=== PATIENT | male | born 1955 | race Caucasian/White ===

== ENCOUNTER → 2022-08-23 | Outpatient (REF) | payer MEDICARE, MEDICAID ==
[2022-08-23 08:51] LABS: HEMATOCRIT 42.1 % (42.0-52.0); MEAN CORPUSCULAR HEMOGLOBIN 29.5 pg (27.0-33.0); MEAN CORPUSCULAR HGB CONC 30.9 g/dl (32.0-36.5); MEAN CORPUSCULAR VOLUME 95.5 fl (80.0-96.0); PLATELET COUNT, AUTOMATED 225 10^3/uL (150-450); RED BLOOD COUNT 4.41 10^6/uL (4.30-6.10); WHITE BLOOD COUNT 8.1 10^3/uL (4.0-10.0)
[2022-08-23 09:23] LABS: ALBUMIN 2.9 G/DL (3.2-5.2); BILIRUBIN,TOTAL 0.3 MG/DL (0.3-1.2); CALCIUM LEVEL 8.9 MG/DL (8.3-10.6); CHOLESTEROL RISK RATIO 2.9 (<5); CREATININE FOR GFR 4.77 MG/DL (0.70-1.30); GLOMERULAR FILTRATION RATE 13.1 (>49); HDL CHOLESTEROL 56.8 MG/DL (>40); LDL CHOLESTEROL 91.4 MG/DL (<100); NON-HDL-C 108.2 MG/DL; POTASSIUM SERUM 5.9 MMOL/L (3.5-5.1); TOTAL PROTEIN 6.1 G/DL (5.7-8.2)
[2022-08-23 10:05] LABS: HEMOGLOBIN A1c 7.1 % (4.0-6.0)
== END ==
LOC: SKLAB5 07:56
PROVIDERS: ATTEND Internal Medicine
DX: N18.9 Chronic kidney disease, unspecified (principal); E11.22 Type 2 diabetes mellitus with diabetic chronic kidney disease

== ENCOUNTER → 2022-09-06 | Outpatient (REF) | LOC: SKLAB5 06:34 | PROVIDERS: ATTEND Internal Medicine | DX: E11.65 Type 2 diabetes mellitus with hyperglycemia (principal) ==

== ENCOUNTER → 2022-09-13 | Outpatient (REF) | payer MEDICARE, MEDICAID ==
[2022-09-14 01:11] LABS: CALCIUM LEVEL 9.2 MG/DL (8.3-10.6); CREATININE FOR GFR 4.05 MG/DL (0.70-1.30); GLOMERULAR FILTRATION RATE 15.8 (>49); POTASSIUM SERUM 5.1 MMOL/L (3.5-5.1)
== END ==
LOC: SKLAB8 22:03
PROVIDERS: ATTEND Internal Medicine
DX: E11.65 Type 2 diabetes mellitus with hyperglycemia (principal)

== ENCOUNTER → 2022-09-28 | Outpatient (REF) | payer MEDICARE, MEDICAID ==
[~2022-09-28] MED LIST: ACET-907 PO; ALBU8.5H INH; ASPI-655 PO; ATOR1TAB19 PO; CITA40TA7 PO; CYCL-707 PO; FLEEENE12 PR; GABA-282 PO; GLUC1KIT IM; HUMA100I5 SC; INSU100V13 SQ; INSUHUMDS SC; OXYC1TAB23 PO
== END ==
LOC: SKLAB5 13:43
PROVIDERS: ATTEND Internal Medicine
DX: E11.65 Type 2 diabetes mellitus with hyperglycemia (principal)

== ENCOUNTER → 2022-10-02 | Outpatient (REF) | payer MEDICARE, MEDICAID | LOC: SKLAB5 12:57 | PROVIDERS: ATTEND Internal Medicine | DX: E11.65 Type 2 diabetes mellitus with hyperglycemia (principal) ==

== ENCOUNTER → 2022-10-04 | Outpatient (REF) | payer MEDICARE, MEDICAID | LOC: SKLAB5 16:36 | PROVIDERS: ATTEND Internal Medicine | DX: E11.65 Type 2 diabetes mellitus with hyperglycemia (principal); Z53.8 Procedure and treatment not carried out for other reasons ==

== ENCOUNTER → 2022-10-04 | Outpatient (REF) | payer MEDICARE, MEDICAID | LOC: SKLAB5 16:35 | PROVIDERS: ATTEND Internal Medicine | DX: E11.65 Type 2 diabetes mellitus with hyperglycemia (principal) ==

== ENCOUNTER → 2022-10-05 | Outpatient (REF) | payer MEDICARE, MEDICAID | LOC: SKLAB5 09:47 | PROVIDERS: ATTEND Internal Medicine | DX: E11.65 Type 2 diabetes mellitus with hyperglycemia (principal) ==

== ENCOUNTER → 2022-10-07 | Outpatient (REF) | payer MEDICARE, MEDICAID ==
[2022-10-07 08:05] LABS: BASO # 0.1 10^3/uL (0.0-0.2); BASO % 1.2 % (0.0-1.0); EOS # 0.8 10^3/uL (0.0-0.5); EOS % 11.2 % (0.0-3.0); HEMATOCRIT 40.7 % (42.0-52.0); HEMOGLOBIN 12.7 g/dl (13.5-17.5); LYMPH # 2.2 10^3/uL (1.5-5.0); MEAN CORPUSCULAR HEMOGLOBIN 29.2 pg (27.0-33.0); MEAN CORPUSCULAR HGB CONC 31.2 g/dl (32.0-36.5); MEAN CORPUSCULAR VOLUME 93.6 fl (80.0-96.0); MONO # 0.8 10^3/uL (0.0-0.8); MONO % 11.6 % (2.0-8.0); NEUTROPHILS % 43.9 % (36.0-66.0); PLATELET COUNT, AUTOMATED 221 10^3/uL (150-450); RED BLOOD COUNT 4.35 10^6/uL (4.30-6.10); WHITE BLOOD COUNT 6.8 10^3/uL (4.0-10.0)
[2022-10-07 08:32] LABS: PERCENT SATURATION 15.1 % (19.7-50.0)
[2022-10-07 08:42] LABS: ALBUMIN 2.8 G/DL (3.2-5.2); BILIRUBIN,TOTAL 0.2 MG/DL (0.3-1.2); CREATININE FOR GFR 4.32 MG/DL (0.70-1.30); FERRITIN 37.9 NG/ML (10.5-307.3); GLOMERULAR FILTRATION RATE 14.7 (>49); POTASSIUM SERUM 5.5 MMOL/L (3.5-5.1)
== END ==
LOC: SKLAB5 10-03 07:54
PROVIDERS: ATTEND Internal Medicine
DX: E11.22 Type 2 diabetes mellitus with diabetic chronic kidney disease (principal); N18.9 Chronic kidney disease, unspecified

== ENCOUNTER → 2022-10-22 | Outpatient (REF) | payer MEDICARE, MEDICAID ==
[2022-10-22 21:51] LABS: CALCIUM LEVEL 8.5 MG/DL (8.3-10.6); CREATININE FOR GFR 3.38 MG/DL (0.70-1.30); GLOMERULAR FILTRATION RATE 19.5 (>49); POTASSIUM SERUM 4.9 MMOL/L (3.5-5.1)
== END ==
LOC: SKLAB5 18:40
PROVIDERS: ATTEND Internal Medicine
DX: E11.65 Type 2 diabetes mellitus with hyperglycemia (principal)

== ENCOUNTER 2022-11-05 10:10 | Observation (INO) | payer MEDICARE, MEDICAID ==
[~2022-11-05] VITALS: Ht 160 cm; Wt 71.8 kg
[2022-11-05 11:18] LABS: HEMATOCRIT 40.1 % (42.0-52.0); HEMOGLOBIN 13.1 g/dl (13.5-17.5); MEAN CORPUSCULAR HEMOGLOBIN 29.8 pg (27.0-33.0); MEAN CORPUSCULAR HGB CONC 32.7 g/dl (32.0-36.5); MEAN CORPUSCULAR VOLUME 91.3 fl (80.0-96.0); PLATELET COUNT, AUTOMATED 198 10^3/uL (150-450); RED BLOOD COUNT 4.39 10^6/uL (4.30-6.10); VENOUS BASE EXCESS -5.5 (-2.0-2.0); VENOUS O2 SATURATION 91.1 % (60.0-80.0); VENOUS PARTIAL PRESSURE CO2 44.6 mmHg (38.0-50.0); VENOUS PARTIAL PRESSURE O2 65.4 mmHg (30.0-50.0); VENOUS STANDARD HCO3 19.8 MMOL/L; VENOUS TOTAL CO2 22.3 MMOL/L (24.0-28.0); WHITE BLOOD COUNT 13.4 10^3/uL (4.0-10.0)
[2022-11-05 11:47] LABS: OSMOLALITY SERUM 321 MOSM/KG (280-301)
[2022-11-05 11:48] LABS: ALBUMIN 3.1 G/DL (3.2-5.2); ALKALINE PHOSPHATASE 107 U/L (46-116); ALT/SGPT 23 U/L (7.0-40); AST/SGOT 27 U/L (<34); BILIRUBIN,DIRECT < 0.1 MG/DL (<0.4); BILIRUBIN,TOTAL 0.3 MG/DL (0.3-1.2); BLOOD UREA NITROGEN 82 MG/DL (9-23); CALCIUM LEVEL 9.2 MG/DL (8.3-10.6); CARBON DIOXIDE LEVEL 23 MMOL/L (20-31); CHLORIDE LEVEL 99 MMOL/L (98-107); CREATININE FOR GFR 5.57 MG/DL (0.70-1.30); GLOMERULAR FILTRATION RATE 10.9 (>49); GLUCOSE, FASTING 389 MG/DL (74-106); POTASSIUM SERUM 5.4 MMOL/L (3.5-5.1); SODIUM LEVEL 133 MMOL/L (136-145); TOTAL PROTEIN 6.6 G/DL (5.7-8.2)
[2022-11-05 11:49] LABS: ATYPICAL LYMPH 4 % (0-5); LYMPHOCYTES 2 % (16-44); MONOCYTES 6 % (0-5); NEUTROPHILS 71 % (28-66)
[2022-11-05 11:50] LABS: PLATELET ESTIMATE NORMAL (NORMAL); THYROID STIMULATING HORMONE 0.602 uIU/ML (0.55-4.78)
[2022-11-05] MEDS ORDERED: cefTRIAXone SOD 2 GM in D5W MINI-BAG PLUS 50 ML IV ONE (12:00)
[2022-11-05] MEDS ORDERED: HumuLIN R (REGULAR) INSULIN (NovoLIN R) **100U/ML** PER UNIT SC STA (15:11)
[2022-11-05] MEDS ORDERED: GLUCOSE 4GM CHEW TABLET PO PRN (16:25)
[2022-11-05] MEDS ORDERED: DEXTROSE 50% 50ML SYRINGE IV PRN (16:25)
[2022-11-05] MEDS ORDERED: GLUCAGON INJ 1MG VIAL SC PRN (16:25)
[2022-11-05] MEDS ORDERED: GABA-282 PO (16:54)
[2022-11-05] MEDS ORDERED: OXYC1TAB23 PO (16:54)
[2022-11-05] MEDS ORDERED: ALBU8.5H INH (16:54)
[2022-11-05] MEDS ORDERED: INSUHUMDS SC (16:54)
[2022-11-05] MEDS ORDERED: CITA40TA7 PO (16:54)
[2022-11-05] MEDS ORDERED: CYCL-707 PO (16:54)
[2022-11-05] MEDS ORDERED: INSU100V13 SQ (16:54)
[2022-11-05] MEDS ORDERED: ASPI-655 PO (16:54)
[2022-11-05] MEDS ORDERED: HUMA100I5 SC ×2 (16:54)
[2022-11-05] MEDS ORDERED: GLUC1KIT IM (16:54)
[2022-11-05] MEDS ORDERED: ACET-907 PO (16:54)
[2022-11-05] MEDS ORDERED: FLEEENE12 PR (16:54)
[2022-11-05] MEDS ORDERED: ATOR1TAB19 PO (16:54)
[2022-11-05] MEDS ORDERED: HOME MED LIST COMPLETE! XX SCH (16:55)
[2022-11-05] MEDS ORDERED: **hydrALAZINE HCL** 25 MG TAB PO PRN (17:15)
[2022-11-05] MEDS ORDERED: INSULIN LISPRO (NovoLOG) PER UNIT SC SCH (17:30)
[2022-11-05 17:42] VITALS: BP 134/60
[2022-11-05] MEDS ORDERED: ALBUTEROL 90 MCG/ACT 8GM HFA INHALER INH PRN (18:10)
[2022-11-05] MEDS: INSULIN LISPRO (NovoLOG) PER UNIT SC SCH ×2 (18:21→22:11)
[2022-11-05] MEDS ORDERED: FUROSEMIDE 40MG/4ML VIAL IV ONE (18:35)
[2022-11-05] MEDS ORDERED: LEVEMIR (INSULIN DETEMIR) 1 UNITS/0.01ML SC SCH ×2 (21:00)
[2022-11-05 22:00] VITALS: BP 138/62
[2022-11-05] MEDS: ATORVASTATIN 10 MG TAB PO SCH (22:11)
[2022-11-05] MEDS: HEPARIN SOD (PORCINE) 5000UNITS/ML 1ML VIAL/SYRINGE SC SCH (22:12)
[2022-11-06 05:24] VITALS: BP 136/62
[2022-11-06] MEDS: HEPARIN SOD (PORCINE) 5000UNITS/ML 1ML VIAL/SYRINGE SC SCH ×3 (06:14→22:08)
[2022-11-06 06:19] LABS: HEMOGLOBIN 13.8 g/dl (13.5-17.5); MEAN CORPUSCULAR HEMOGLOBIN 29.6 pg (27.0-33.0); MEAN CORPUSCULAR HGB CONC 32.1 g/dl (32.0-36.5); MEAN CORPUSCULAR VOLUME 92.3 fl (80.0-96.0); PLATELET COUNT, AUTOMATED 193 10^3/uL (150-450); RED BLOOD COUNT 4.66 10^6/uL (4.30-6.10); WHITE BLOOD COUNT 11.2 10^3/uL (4.0-10.0)
[2022-11-06 06:46] LABS: CALCIUM LEVEL 8.8 MG/DL (8.3-10.6); CREATININE FOR GFR 6.43 MG/DL (0.70-1.30); GLOMERULAR FILTRATION RATE 9.3 (>49); MAGNESIUM LEVEL 2.3 MG/DL (1.8-2.4); POTASSIUM SERUM 5.7 MMOL/L (3.5-5.1)
[2022-11-06] MEDS ORDERED: HEPARIN 1,000UNITS/ML 10ML VIAL (FOR RADIOLOGY & DIALYSIS ONLY) IV PRN (07:25)
[2022-11-06] MEDS ORDERED: HEPARIN 1,000UNITS/ML 10ML VIAL (FOR RADIOLOGY & DIALYSIS ONLY) XX SCH (07:25)
[2022-11-06] MEDS ORDERED: LIDOCAINE 1% SDV 5ML VIAL SC PRN (07:25)
[2022-11-06] MEDS ORDERED: SODIUM CHLORIDE 0.9% 1000ML IV PRN (07:25)
[2022-11-06] MEDS: INSULIN LISPRO (NovoLOG) PER UNIT SC SCH ×4 (07:30→21:49)
[2022-11-06] MEDS: ASPIRIN 81MG CHEW TABLET PO SCH (08:11)
[2022-11-06 09:00] VITALS: O2SAT 97
[2022-11-06] MEDS ORDERED: LEVEMIR (INSULIN DETEMIR) 1 UNITS/0.01ML SC SCH (09:00)
[2022-11-06 14:00] VITALS: O2SAT 95
[2022-11-06 17:00] VITALS: BP 154/69
[2022-11-06] MEDS: ACETAMINOPHEN TAB 650MG DOSE (2X325MG) PO PRN ×2 (17:08→21:51)
[2022-11-06 18:00] VITALS: O2SAT 96
[2022-11-06] MEDS ORDERED: ONDANSETRON 4MG 2ML VIAL IV SCH (18:00)
[2022-11-06] MEDS ORDERED: ONDANSETRON 4MG 2ML VIAL IV PRN (18:00)
[2022-11-06] MEDS ORDERED: MORPHINE 2 MG/ML 1ML VIAL IV ONE (18:00)
[2022-11-06] MEDS ORDERED: TAMSULOSIN 0.4 MG CAP PO ONE (19:35)
[2022-11-06] MEDS: ATORVASTATIN 10 MG TAB PO SCH (19:40)
[2022-11-06] MEDS: GABAPENTIN 300 MG CAP PO SCH (19:40)
[2022-11-06 20:00] VITALS: BP 140/63
[2022-11-06] MEDS: LEVEMIR (INSULIN DETEMIR) 1 UNITS/0.01ML SC SCH (21:49)
[2022-11-06] MEDS: PERCOCET 5MG/325MG TAB PO PRN (22:23)
[2022-11-06] MEDS ORDERED: oxyCODONE 5MG TAB PO ONE (23:55)
[2022-11-07] MEDS: HEPARIN SOD (PORCINE) 5000UNITS/ML 1ML VIAL/SYRINGE SC SCH ×3 (05:18→21:16)
[2022-11-07 06:00] VITALS: BP 134/59
[2022-11-07 06:23] LABS: HEMATOCRIT 44.5 % (42.0-52.0); HEMOGLOBIN 14.4 g/dl (13.5-17.5); LYMPH # 0.7 10^3/uL (1.5-5.0); LYMPH % 8.8 % (24.0-44.0); MEAN CORPUSCULAR HEMOGLOBIN 29.3 pg (27.0-33.0); MEAN CORPUSCULAR HGB CONC 32.4 g/dl (32.0-36.5); MEAN CORPUSCULAR VOLUME 90.4 fl (80.0-96.0); MONO # 0.4 10^3/uL (0.0-0.8); MONO % 4.3 % (2.0-8.0); NEUTROPHILS % 86.5 % (36.0-66.0); PLATELET COUNT, AUTOMATED 215 10^3/uL (150-450); RED BLOOD COUNT 4.92 10^6/uL (4.30-6.10); WHITE BLOOD COUNT 8.1 10^3/uL (4.0-10.0)
[2022-11-07 07:02] LABS: CALCIUM LEVEL 9.3 MG/DL (8.3-10.6); CREATININE FOR GFR 5.26 MG/DL (0.70-1.30); GLOMERULAR FILTRATION RATE 11.7 (>49); POTASSIUM SERUM 6.1 MMOL/L (3.5-5.1)
[2022-11-07] MEDS ORDERED: SODIUM CHLORIDE 0.9% 1000ML IV PRN (07:35)
[2022-11-07] MEDS ORDERED: HEPARIN 1,000UNITS/ML 10ML VIAL (FOR RADIOLOGY & DIALYSIS ONLY) XX SCH (07:35)
[2022-11-07] MEDS ORDERED: LIDOCAINE 1% SDV 5ML VIAL SC PRN (07:35)
[2022-11-07] MEDS ORDERED: HEPARIN 1,000UNITS/ML 10ML VIAL (FOR RADIOLOGY & DIALYSIS ONLY) IV PRN (07:35)
[2022-11-07] MEDS: GABAPENTIN 300 MG CAP PO SCH ×3 (08:34→21:17)
[2022-11-07] MEDS: CitaloPRAM (CeleXA) 20 MG TAB PO SCH (08:34)
[2022-11-07] MEDS: ASPIRIN 81MG CHEW TABLET PO SCH (08:34)
[2022-11-07] MEDS: LEVEMIR (INSULIN DETEMIR) 1 UNITS/0.01ML SC SCH ×2 (08:35→21:17)
[2022-11-07] MEDS: INSULIN LISPRO (NovoLOG) PER UNIT SC SCH ×4 (08:35→21:00)
[2022-11-07] MEDS: PERCOCET 5MG/325MG TAB PO PRN ×2 (08:36→16:21)
[2022-11-07] MEDS ORDERED: PATIROMER SORBITEX CALCIUM 8.4 GM POWDER PACKET (VELTASSA) PO ONE (09:00)
[2022-11-07] MEDS: ACETAMINOPHEN TAB 650MG DOSE (2X325MG) PO PRN (13:53)
[2022-11-07 14:00] VITALS: BP 115/62
[2022-11-07 20:30] VITALS: BP 110/64
[2022-11-07] MEDS: ATORVASTATIN 10 MG TAB PO SCH (21:17)
[2022-11-08] MEDS: PERCOCET 5MG/325MG TAB PO PRN ×2 (00:23→08:39)
[2022-11-08] MEDS: HEPARIN SOD (PORCINE) 5000UNITS/ML 1ML VIAL/SYRINGE SC SCH ×2 (05:25→14:00)
[2022-11-08 05:30] VITALS: BP 121/65
[2022-11-08 06:50] LABS: CALCIUM LEVEL 8.4 MG/DL (8.3-10.6); CREATININE FOR GFR 4.99 MG/DL (0.70-1.30); GLOMERULAR FILTRATION RATE 12.4 (>49); POTASSIUM SERUM 5.2 MMOL/L (3.5-5.1)
[2022-11-08] MEDS ORDERED: LIDOCAINE 1% SDV 5ML VIAL SC PRN (07:50)
[2022-11-08] MEDS ORDERED: SODIUM CHLORIDE 0.9% 1000ML IV PRN (07:50)
[2022-11-08] MEDS ORDERED: HEPARIN 1,000UNITS/ML 10ML VIAL (FOR RADIOLOGY & DIALYSIS ONLY) XX SCH (07:50)
[2022-11-08] MEDS ORDERED: HEPARIN 1,000UNITS/ML 10ML VIAL (FOR RADIOLOGY & DIALYSIS ONLY) IV PRN (07:50)
[2022-11-08] MEDS: INSULIN LISPRO (NovoLOG) PER UNIT SC SCH ×2 (08:37→12:13)
[2022-11-08] MEDS: GABAPENTIN 300 MG CAP PO SCH (08:38)
[2022-11-08] MEDS: LEVEMIR (INSULIN DETEMIR) 1 UNITS/0.01ML SC SCH (08:38)
[2022-11-08] MEDS: ASPIRIN 81MG CHEW TABLET PO SCH (08:39)
[2022-11-08] MEDS: CitaloPRAM (CeleXA) 20 MG TAB PO SCH (08:39)
[2022-11-08] MEDS ORDERED: GABA-282 PO (10:24)
== END 2022-11-08 14:23 | disposition home or self-care (01) ==
LOC: M ED 10:10 → M ED INP 15:14 → ENRESERV 16:32 → M MSPAV 17:24
PROVIDERS: ADMIT Internal Medicine; ATTEND Internal Medicine
DX: U07.1 COVID-19 (principal); R53.1 Weakness; R53.83 Other fatigue; R65.11 Systemic inflammatory response syndrome (SIRS) of non-infectious origin with acute organ dysfunction; D72.829 Elevated white blood cell count, unspecified; R50.9 Fever, unspecified; N18.4 Chronic kidney disease, stage 4 (severe); Z99.2 Dependence on renal dialysis; E11.65 Type 2 diabetes mellitus with hyperglycemia; E11.42 Type 2 diabetes mellitus with diabetic polyneuropathy; F32.A Depression, unspecified; I12.9 Hypertensive chronic kidney disease with stage 1 through stage 4 chronic kidney disease, or unspecified chronic kidney disease; E87.5 Hyperkalemia; I67.82 Cerebral ischemia; G31.1 Senile degeneration of brain, not elsewhere classified; I25.10 Atherosclerotic heart disease of native coronary artery without angina pectoris; I48.91 Unspecified atrial fibrillation; Z88.0 Allergy status to penicillin; Z79.899 Other long term (current) drug therapy; Z79.82 Long term (current) use of aspirin; Z79.4 Long term (current) use of insulin
CPT/HCPCS: 36415; 70450; 71045; 71250; 80048; 80076; 81001; 82140; 82803; 83605; 83735; 83930; 84132; 84145; 84443; 85025; 85027; 87040; 87070; 87205; 87486; 87581; 87633; 87798; 93005; 93041; 94760; 96365; 96372; 96375; 97161; 97165; 97530; 99285; G0257; G0378; J0696; J1815; J1940; J2405

== ENCOUNTER → 2022-11-29 | Outpatient (REF) | payer MEDICARE, MEDICAID ==
[2022-11-29 08:27] LABS: HEMATOCRIT 36.8 % (42.0-52.0); HEMOGLOBIN 11.7 g/dl (13.5-17.5); MEAN CORPUSCULAR HEMOGLOBIN 29.3 pg (27.0-33.0); MEAN CORPUSCULAR HGB CONC 31.8 g/dl (32.0-36.5); PLATELET COUNT, AUTOMATED 230 10^3/uL (150-450); WHITE BLOOD COUNT 4.1 10^3/uL (4.0-10.0)
[2022-11-29 08:56] LABS: HEMOGLOBIN A1c 9.2 % (4.0-6.0)
[2022-11-29 08:56] LABS: ALBUMIN 2.8 G/DL (3.2-5.2); BILIRUBIN,TOTAL 0.2 MG/DL (0.3-1.2); CALCIUM LEVEL 8.4 MG/DL (8.3-10.6); CHOLESTEROL RISK RATIO 3.47 (<5); CREATININE FOR GFR 3.72 MG/DL (0.70-1.30); GLOMERULAR FILTRATION RATE 17.4 (>49); HDL CHOLESTEROL 41.4 MG/DL (>40); NON-HDL-C 102.6 MG/DL; TOTAL PROTEIN 6.1 G/DL (5.7-8.2)
== END ==
LOC: SKLAB5 09:42
PROVIDERS: ATTEND Internal Medicine
DX: E11.9 Type 2 diabetes mellitus without complications (principal); E78.5 Hyperlipidemia, unspecified

== ENCOUNTER 2022-12-26 12:31 | Emergency (ER) | payer MEDICARE, MEDICAID ==
[~2022-12-26] VITALS: Ht 175.3 cm; Wt 71.2 kg
[2022-12-26] MEDS ORDERED: PERCOCET 5MG/325MG TAB PO ONE (14:25)
[2022-12-26] MEDS ORDERED: LIDOCAINE 5% (LIDODERM) PATCH TD ONE (14:25)
[2022-12-26] MEDS ORDERED: CYCLOBENZAPRINE 10MG TABLET PO ONE (14:25)
[2022-12-26 16:59] VITALS: BP 130/70; TEMP 98; O2SAT 96
== END 2022-12-26 17:00 | disposition home or self-care (01) ==
LOC: M ED 12:31 → EDBD 12:31 → M ED 17:00
DX: M54.50 Low back pain, unspecified (principal); E11.42 Type 2 diabetes mellitus with diabetic polyneuropathy; I12.9 Hypertensive chronic kidney disease with stage 1 through stage 4 chronic kidney disease, or unspecified chronic kidney disease; N18.6 End stage renal disease; F41.9 Anxiety disorder, unspecified; F32.A Depression, unspecified; Z88.0 Allergy status to penicillin; Z79.899 Other long term (current) drug therapy; Z79.82 Long term (current) use of aspirin; Z79.4 Long term (current) use of insulin

== ENCOUNTER → 2023-01-14 | Outpatient (REF) | payer MEDICARE, MEDICAID | LOC: SKLAB5 09:29 | PROVIDERS: ATTEND Internal Medicine | DX: E11.65 Type 2 diabetes mellitus with hyperglycemia (principal) ==

== ENCOUNTER → 2023-02-28 | Outpatient (REF) | payer MEDICARE, MEDICAID ==
[2023-02-28 08:52] LABS: HEMATOCRIT 37.5 % (42.0-52.0); HEMOGLOBIN 11.8 g/dl (13.5-17.5); MEAN CORPUSCULAR HGB CONC 31.5 g/dl (32.0-36.5); MEAN CORPUSCULAR VOLUME 85.8 fl (80.0-96.0); PLATELET COUNT, AUTOMATED 219 10^3/uL (150-450); RED BLOOD COUNT 4.37 10^6/uL (4.30-6.10); WHITE BLOOD COUNT 5.9 10^3/uL (4.0-10.0)
[2023-02-28 09:09] LABS: HEMOGLOBIN A1c 9.9 % (4.0-6.0)
[2023-02-28 09:27] LABS: ALBUMIN 3.1 G/DL (3.2-5.2); BILIRUBIN,TOTAL 0.3 MG/DL (0.3-1.2); CALCIUM LEVEL 9.4 MG/DL (8.3-10.6); CREATININE FOR GFR 4.2 MG/DL (0.70-1.30); GLOMERULAR FILTRATION RATE 15.1 (>49); POTASSIUM SERUM 4.8 MMOL/L (3.5-5.1); TOTAL PROTEIN 6.5 G/DL (5.7-8.2)
== END ==
LOC: SKLAB5 08:46
PROVIDERS: ATTEND Internal Medicine
DX: E11.9 Type 2 diabetes mellitus without complications (principal); E78.5 Hyperlipidemia, unspecified

== ENCOUNTER → 2023-03-02 | Outpatient (REF) | payer MEDICARE, MEDICAID | LOC: SKLAB5 18:39 | PROVIDERS: ATTEND Internal Medicine | DX: E11.65 Type 2 diabetes mellitus with hyperglycemia (principal) ==

== ENCOUNTER → 2023-04-11 | Outpatient (REF) | payer MEDICARE, MEDICAID | LOC: SKLAB5 07:50 | PROVIDERS: ATTEND Internal Medicine | DX: E11.65 Type 2 diabetes mellitus with hyperglycemia (principal) ==

== ENCOUNTER → 2023-04-17 | Outpatient (REF) | payer MEDICARE, MEDICAID | LOC: SKLAB5 07:49 | PROVIDERS: ATTEND Internal Medicine | DX: E11.65 Type 2 diabetes mellitus with hyperglycemia (principal) ==

== ENCOUNTER → 2023-05-29 | Outpatient (CLI) | payer MEDICARE, MEDICAID | LOC: M RAD 13:54 → M LAB 13:54 | PROVIDERS: ATTEND Internal Medicine | DX: M19.011 Primary osteoarthritis, right shoulder (principal); M25.511 Pain in right shoulder ==

== ENCOUNTER → 2023-05-29 | Outpatient (REF) | payer MEDICARE, MEDICAID | LOC: SKLAB5 11:30 | PROVIDERS: ATTEND Nurse Practitioner Family | DX: Z53.8 Procedure and treatment not carried out for other reasons (principal) ==

== ENCOUNTER → 2023-05-30 | Outpatient (REF) | payer MEDICARE, MEDICAID ==
[2023-05-30 07:37] LABS: HEMATOCRIT 43.1 % (42.0-52.0); MEAN CORPUSCULAR HEMOGLOBIN 29.6 pg (27.0-33.0); MEAN CORPUSCULAR HGB CONC 32.5 g/dl (32.0-36.5); MEAN CORPUSCULAR VOLUME 91.1 fl (80.0-96.0); PLATELET COUNT, AUTOMATED 181 10^3/uL (150-450); RED BLOOD COUNT 4.73 10^6/uL (4.30-6.10); WHITE BLOOD COUNT 5.3 10^3/uL (4.0-10.0)
[2023-05-30 08:13] LABS: ALBUMIN 3.2 G/DL (3.2-5.2); BILIRUBIN,TOTAL 0.4 MG/DL (0.3-1.2); CALCIUM LEVEL 9.5 MG/DL (8.3-10.6); CHOLESTEROL RISK RATIO 3.82 (<5); CREATININE FOR GFR 3.67 MG/DL (0.70-1.30); GLOMERULAR FILTRATION RATE 17.6 (>49); HDL CHOLESTEROL 40.8 MG/DL (>40); LDL CHOLESTEROL 92.2 MG/DL (<100); NON-HDL-C 115.2 MG/DL; POTASSIUM SERUM 4.7 MMOL/L (3.5-5.1); TOTAL PROTEIN 6.5 G/DL (5.7-8.2)
== END ==
LOC: SKLAB5 10:39
PROVIDERS: ATTEND Internal Medicine
DX: E11.9 Type 2 diabetes mellitus without complications (principal); E78.5 Hyperlipidemia, unspecified

== ENCOUNTER → 2023-07-28 | Outpatient (REF) | payer MEDICARE, MEDICAID ==
[~2023-07-28] MED LIST changes: +CITA20TA6 PO; +GABA-1171 PO; +INSULANT SC
[2023-07-28 13:29] LABS: HEMATOCRIT 43.3 % (42.0-52.0); HEMOGLOBIN 14.1 g/dl (13.5-17.5); MEAN CORPUSCULAR HEMOGLOBIN 29.9 pg (27.0-33.0); MEAN CORPUSCULAR HGB CONC 32.6 g/dl (32.0-36.5); MEAN CORPUSCULAR VOLUME 91.9 fl (80.0-96.0); PLATELET COUNT, AUTOMATED 183 10^3/uL (150-450); RED BLOOD COUNT 4.71 10^6/uL (4.30-6.10); WHITE BLOOD COUNT 4.8 10^3/uL (4.0-10.0)
[2023-07-28 14:44] LABS: CALCIUM LEVEL 9.4 MG/DL (8.3-10.6); CREATININE FOR GFR 5.26 MG/DL (0.70-1.30); GLOMERULAR FILTRATION RATE 11.6 (>49); POTASSIUM SERUM 5.1 MMOL/L (3.5-5.1)
== END ==
LOC: SKLAB5 12:34
PROVIDERS: ATTEND Nurse Practitioner Family
DX: Z01.818 Encounter for other preprocedural examination (principal); N18.6 End stage renal disease

== ENCOUNTER → 2023-07-29 | Outpatient (REF) | payer MEDICARE, MEDICAID ==
[~2023-07-29] MED LIST changes: +HYDR-643 PO; +SENN-186 PO; +TRUL10IN SC
== END ==
LOC: M EKG 15:30
PROVIDERS: ATTEND Nurse Practitioner Family
DX: Z01.818 Encounter for other preprocedural examination (principal); R94.31 Abnormal electrocardiogram [ECG] [EKG]

== ENCOUNTER 2023-08-07 06:10 | Day surgery (SDC) | payer MEDICARE, MEDICAID ==
[~2023-08-07] VITALS: Ht 177.8 cm; Wt 76.5 kg
[~2023-08-07 06:10] MED LIST changes: -HYDR-643 PO; +PHENYLEPHRINE 10% OPHTH SOL 5ML OS PRN; -SENN-186 PO; -TRUL10IN SC
[2023-08-07] MEDS: CYCLOPENTOLATE 1% OPHTH SOLN 2ML BTL OS SCH (06:50)
[2023-08-07] MEDS: PHENYLEPHRINE 2.5% OPHTH SOL 2ML OS SCH (06:50)
[2023-08-07] MEDS: OFLOXACIN 0.3 % (OCUFLOX) OPTH SOL 5ML OS ONE (06:50)
[2023-08-07] MEDS: TROPICAMIDE 1% OPHTH SOLN 15ML OS SCH (06:50)
[2023-08-07] MEDS: LIDOCAINE 3.5 % 1ML OPHTH TOPICAL GEL OU ONE (06:50)
[2023-08-07] MEDS ORDERED: MIDAZOLAM INJ 2MG/2ML VIAL As Ordered ONE (06:54)
[2023-08-07] MEDS ORDERED: fentaNYL 100 MCG/2 ML INJECTION As Ordered ONE (06:54)
[2023-08-07] MEDS: BSS IRRIG/VANCO(10MG)/TOBRA(5MG)/EPINEPH(1:1000-0.5CC)500ML BAG-ORONLY As Ordered ONE (07:34)
[2023-08-07] MEDS: LIDOCAINE 1% SDV 5ML VIAL As Ordered ONE (07:34)
[2023-08-07] MEDS: CEFUROXIME 1MG/0.1ML INTRACAMERAL INJ As Ordered ONE (07:36)
[2023-08-07] MEDS ORDERED: DUOVISC (0.50ML VISCOAT/0.85ML PROVISC) OPHTH KIT As Ordered ONE (07:37)
[2023-08-07 07:52] VITALS: BP 157/76; TEMP 97.2; O2SAT 95
== END 2023-08-07 08:20 | disposition home or self-care (01) ==
LOC: M SDC 06:10
PROVIDERS: ATTEND Ophthalmology
DX: H25.12 Age-related nuclear cataract, left eye (principal); H21.2 Degeneration of iris and ciliary body; E10.9 Type 1 diabetes mellitus without complications; Z88.0 Allergy status to penicillin; Z79.899 Other long term (current) drug therapy; Z79.4 Long term (current) use of insulin
CPT/HCPCS: 36415; 66982; 84132; J0697; J2250; J3010; V2632

== ENCOUNTER → 2023-09-02 | Outpatient (REF) | payer MEDICARE, MEDICAID ==
[~2023-09-02] MED LIST changes: -PHENYLEPHRINE 10% OPHTH SOL 5ML OS PRN
== END ==
LOC: SKLAB5 11:06
PROVIDERS: ATTEND Nurse Practitioner Family
DX: E11.9 Type 2 diabetes mellitus without complications (principal); E78.5 Hyperlipidemia, unspecified; Z53.8 Procedure and treatment not carried out for other reasons

== ENCOUNTER → 2023-09-12 | Outpatient (REF) | payer MEDICARE, MEDICAID ==
[~2023-09-12] MED LIST changes: +HYDR-643 PO; +SENN-186 PO; +TRUL10IN SC
[2023-09-12 08:37] LABS: HEMATOCRIT 44.1 % (42.0-52.0); HEMOGLOBIN 14.2 g/dl (13.5-17.5); MEAN CORPUSCULAR HEMOGLOBIN 29.6 pg (27.0-33.0); MEAN CORPUSCULAR HGB CONC 32.2 g/dl (32.0-36.5); MEAN CORPUSCULAR VOLUME 91.9 fl (80.0-96.0); PLATELET COUNT, AUTOMATED 194 10^3/uL (150-450); WHITE BLOOD COUNT 4.1 10^3/uL (4.0-10.0)
[2023-09-12 09:02] LABS: ALBUMIN 3.2 G/DL (3.2-5.2); BILIRUBIN,TOTAL 0.3 MG/DL (0.3-1.2); CALCIUM LEVEL 9.4 MG/DL (8.3-10.6); CHOLESTEROL RISK RATIO 4.04 (<5); CREATININE FOR GFR 4.05 MG/DL (0.70-1.30); GLOMERULAR FILTRATION RATE 15.7 (>49); HDL CHOLESTEROL 35.1 MG/DL (>40); LDL CHOLESTEROL 83.3 MG/DL (<100); NON-HDL-C 106.9 MG/DL; POTASSIUM SERUM 5.7 MMOL/L (3.5-5.1); TOTAL PROTEIN 6.5 G/DL (5.7-8.2)
== END ==
LOC: SKLAB5 09-11 10:07
PROVIDERS: ATTEND Nurse Practitioner Family
DX: E11.9 Type 2 diabetes mellitus without complications (principal); E78.5 Hyperlipidemia, unspecified

== ENCOUNTER 2023-09-25 07:25 | Day surgery (SDC) | payer MEDICARE, MEDICAID ==
[~2023-09-25] VITALS: Ht 175.3 cm; Wt 73.9 kg
[~2023-09-25 07:25] MED LIST changes: +MIDAZOLAM INJ 2MG/2ML VIAL As Ordered ONE; +PHENYLEPHRINE 10% OPHTH SOL 5ML OD PRN; +fentaNYL 100 MCG/2 ML INJECTION As Ordered ONE
[2023-09-25] MEDS ORDERED: DEXTROSE 50% 50ML SYRINGE IV PRN (08:50)
[2023-09-25] MEDS ORDERED: GLUCAGON INJ 1MG VIAL SC PRN (08:50)
[2023-09-25] MEDS ORDERED: GLUCOSE 4GM CHEW TABLET PO PRN (08:50)
[2023-09-25] MEDS: ATROPINE SULFATE 1% OPHTH SOLN 2ML BTL OD SCH (09:04)
[2023-09-25] MEDS: LIDOCAINE 3.5 % 1ML OPHTH TOPICAL GEL OU ONE (09:04)
[2023-09-25] MEDS: PHENYLEPHRINE 2.5% OPHTH SOL 2ML OD SCH (09:04)
[2023-09-25] MEDS: OFLOXACIN 0.3 % (OCUFLOX) OPTH SOL 5ML OD ONE (09:04)
[2023-09-25] MEDS: TROPICAMIDE 1% OPHTH SOLN 15ML OD SCH (09:04)
[2023-09-25] MEDS: INSULIN LISPRO (NovoLOG) PER UNIT SC PRN (09:05)
[2023-09-25] MEDS ORDERED: POVIDONE-IODINE 5% OPHTH PREP SOL 30ML As Ordered ONE (09:19)
[2023-09-25] MEDS: LIDOCAINE 1% SDV 5ML VIAL As Ordered ONE (09:34)
[2023-09-25] MEDS: BSS IRRIG/VANCO(10MG)/TOBRA(5MG)/EPINEPH(1:1000-0.5CC)500ML BAG-ORONLY As Ordered ONE (09:34)
[2023-09-25] MEDS: CEFUROXIME 1MG/0.1ML INTRACAMERAL INJ As Ordered ONE (09:36)
[2023-09-25 09:49] VITALS: BP 137/61; TEMP 97.1; O2SAT 94
== END 2023-09-25 10:31 | disposition home or self-care (01) ==
LOC: M SDC 07:25
PROVIDERS: ATTEND Ophthalmology
DX: E11.36 Type 2 diabetes mellitus with diabetic cataract (principal); H25.11 Age-related nuclear cataract, right eye; E11.22 Type 2 diabetes mellitus with diabetic chronic kidney disease; I25.10 Atherosclerotic heart disease of native coronary artery without angina pectoris; I12.0 Hypertensive chronic kidney disease with stage 5 chronic kidney disease or end stage renal disease; N18.6 End stage renal disease; I48.0 Paroxysmal atrial fibrillation; Z79.899 Other long term (current) drug therapy; Z79.82 Long term (current) use of aspirin; Z79.4 Long term (current) use of insulin; Z79.85 Long-term (current) use of injectable non-insulin antidiabetic drugs; Z99.2 Dependence on renal dialysis; Z88.0 Allergy status to penicillin; Z88.8 Allergy status to other drugs, medicaments and biological substances
CPT/HCPCS: 36415; 66984; 84132; J0697; J1815; J2250; J3010; V2632

== ENCOUNTER → 2023-10-13 | Outpatient (REF) | payer MEDICARE, MEDICAID ==
[~2023-10-13] MED LIST changes: -MIDAZOLAM INJ 2MG/2ML VIAL As Ordered ONE; -PHENYLEPHRINE 10% OPHTH SOL 5ML OD PRN; -fentaNYL 100 MCG/2 ML INJECTION As Ordered ONE
== END ==
LOC: SKLAB5 13:25
PROVIDERS: ATTEND Internal Medicine
DX: T82.7XXA Infection and inflammatory reaction due to other cardiac and vascular devices, implants and grafts, initial encounter (principal)

== ENCOUNTER → 2023-10-13 | Outpatient (REF) | payer MEDICARE, MEDICAID ==
[2023-10-13 14:11] LABS: BASO # 0.1 10^3/uL (0.0-0.2); BASO % 1.2 % (0.0-1.0); EOS # 0.5 10^3/uL (0.0-0.5); EOS % 7.9 % (0.0-3.0); HEMATOCRIT 45.4 % (42.0-52.0); HEMOGLOBIN 14.8 g/dl (13.5-17.5); LYMPH # 1.8 10^3/uL (1.5-5.0); LYMPH % 29.5 % (24.0-44.0); MEAN CORPUSCULAR HEMOGLOBIN 29.7 pg (27.0-33.0); MEAN CORPUSCULAR HGB CONC 32.6 g/dl (32.0-36.5); MEAN CORPUSCULAR VOLUME 91.2 fl (80.0-96.0); MONO # 0.5 10^3/uL (0.0-0.8); MONO % 8.7 % (2.0-8.0); NEUTROPHILS # 3.2 10^3/uL (1.5-8.5); NEUTROPHILS % 52.4 % (36.0-66.0); PLATELET COUNT, AUTOMATED 224 10^3/uL (150-450); RED BLOOD COUNT 4.98 10^6/uL (4.30-6.10); WHITE BLOOD COUNT 6.1 10^3/uL (4.0-10.0)
[2023-10-13 14:36] LABS: ALBUMIN 3.1 G/DL (3.2-5.2); BILIRUBIN,TOTAL 0.3 MG/DL (0.3-1.2); CALCIUM LEVEL 9.2 MG/DL (8.3-10.6); CREATININE FOR GFR 4.8 MG/DL (0.70-1.30); GLOMERULAR FILTRATION RATE 12.9 (>49); POTASSIUM SERUM 4.9 MMOL/L (3.5-5.1); TOTAL PROTEIN 6.9 G/DL (5.7-8.2)
== END ==
LOC: SKLAB5 13:17
PROVIDERS: ATTEND Internal Medicine
DX: T82.7XXA Infection and inflammatory reaction due to other cardiac and vascular devices, implants and grafts, initial encounter (principal)

== ENCOUNTER 2023-10-15 13:41 | Emergency (ER) | payer MEDICARE, MEDICAID ==
[~2023-10-15] VITALS: Ht 175.3 cm; Wt 68.2 kg
[2023-10-15 14:36] LABS: BASO # 0.1 10^3/uL (0.0-0.2); BASO % 1.4 % (0.0-1.0); EOS # 0.2 10^3/uL (0.0-0.5); EOS % 4.5 % (0.0-3.0); HEMATOCRIT 41.3 % (42.0-52.0); LYMPH # 1.1 10^3/uL (1.5-5.0); LYMPH % 23.8 % (24.0-44.0); MEAN CORPUSCULAR HEMOGLOBIN 30.5 pg (27.0-33.0); MEAN CORPUSCULAR HGB CONC 33.9 g/dl (32.0-36.5); MONO # 0.9 10^3/uL (0.0-0.8); NEUTROPHILS # 2.2 10^3/uL (1.5-8.5); NEUTROPHILS % 50.1 % (36.0-66.0); PLATELET COUNT, AUTOMATED 185 10^3/uL (150-450); RED BLOOD COUNT 4.59 10^6/uL (4.30-6.10); WHITE BLOOD COUNT 4.4 10^3/uL (4.0-10.0)
[2023-10-15 14:45] LABS: ERYTHROCYTE SEDIMENTATION RATE 46 mm/hr (0-20)
[2023-10-15 14:51] LABS: INR 1.05; PARTIAL THROMBOPLASTIN TIME 27.7 SECONDS (24.8-34.2); PROTHROMBIN TIME 13.4 SECONDS (12.5-14.5)
[2023-10-15] MEDS ORDERED: VANCOMYCIN HCL 1,250 MG in NS 250 ML IV ONE (15:05)
[2023-10-15 15:06] LABS: C REACTIVE PROTEIN QUANTITATIV 4.2 MG/DL (<1.0)
[2023-10-15 15:08] LABS: ALBUMIN 3.4 G/DL (3.2-5.2); BILIRUBIN,DIRECT 0.1 MG/DL (<0.4); BILIRUBIN,TOTAL 0.4 MG/DL (0.3-1.2); CALCIUM LEVEL 8.8 MG/DL (8.3-10.6); CREATININE FOR GFR 4.53 MG/DL (0.70-1.30); GLOMERULAR FILTRATION RATE 13.8 (>49); POTASSIUM SERUM 4.4 MMOL/L (3.5-5.1); TOTAL PROTEIN 6.9 G/DL (5.7-8.2)
[2023-10-15 15:19] LABS: PROCALCITONIN 0.79 ng/ml
[2023-10-15] MEDS: MORPHINE 2 MG/ML 1ML VIAL IV PRN (15:45)
[2023-10-15] MEDS: VANCOMYCIN HCL 750 MG, VIAL MATE ADAPTER 1 EACH in D5W 250 ML IV ONE (15:58)
[2023-10-15] MEDS: VANCOMYCIN HCL 500 MG in D5W MINI-BAG PLUS 100 ML IV ONE (17:44)
[2023-10-15 21:25] VITALS: BP 147/69; TEMP 98.1; O2SAT 95
== END 2023-10-15 21:37 | disposition short-term general hospital (02) ==
LOC: EDBD 13:41 → M ED 13:41
DX: T82.7XXA Infection and inflammatory reaction due to other cardiac and vascular devices, implants and grafts, initial encounter (principal); Y92.9 Unspecified place or not applicable; Y93.9 Activity, unspecified; N18.6 End stage renal disease; Z99.2 Dependence on renal dialysis; I48.91 Unspecified atrial fibrillation; I25.10 Atherosclerotic heart disease of native coronary artery without angina pectoris; E11.9 Type 2 diabetes mellitus without complications; I10 Essential (primary) hypertension; D63.8 Anemia in other chronic diseases classified elsewhere; Z87.891 Personal history of nicotine dependence; Z79.82 Long term (current) use of aspirin; Z88.4 Allergy status to anesthetic agent; Z79.899 Other long term (current) drug therapy; Z88.0 Allergy status to penicillin; Z88.1 Allergy status to other antibiotic agents
CPT/HCPCS: 36415; 80048; 80076; 83605; 84145; 85025; 85610; 85652; 85730; 86140; 87040; 93041; 94760; 96365; 96366; 96375; 96376; 99285; J3370

== ENCOUNTER → 2023-10-30 | Outpatient (REF) | payer MEDICAID, MEDICARE ==
[2023-10-30 11:49] LABS: BASO # 0.1 10^3/uL (0.0-0.2); BASO % 1.2 % (0.0-1.0); EOS # 0.5 10^3/uL (0.0-0.5); EOS % 6.3 % (0.0-3.0); HEMATOCRIT 32.1 % (42.0-52.0); HEMOGLOBIN 10.6 g/dl (13.5-17.5); LYMPH # 1.6 10^3/uL (1.5-5.0); LYMPH % 21.4 % (24.0-44.0); MEAN CORPUSCULAR HEMOGLOBIN 30.3 pg (27.0-33.0); MEAN CORPUSCULAR VOLUME 91.7 fl (80.0-96.0); MONO # 0.8 10^3/uL (0.0-0.8); MONO % 10.8 % (2.0-8.0); NEUTROPHILS # 4.6 10^3/uL (1.5-8.5); NEUTROPHILS % 59.9 % (36.0-66.0); PLATELET COUNT, AUTOMATED 347 10^3/uL (150-450); WHITE BLOOD COUNT 7.6 10^3/uL (4.0-10.0)
[2023-10-30 12:15] LABS: ALKALINE PHOSPHATASE 149 U/L (46-116); ALT/SGPT < 9 U/L (7.0-40); AST/SGOT 21 U/L (<34); BILIRUBIN,TOTAL 0.2 MG/DL (0.3-1.2); BLOOD UREA NITROGEN 12 MG/DL (9-23); CALCIUM LEVEL 8.6 MG/DL (8.3-10.6); CARBON DIOXIDE LEVEL 29 MMOL/L (20-31); CHLORIDE LEVEL 98 MMOL/L (98-107); CREATININE FOR GFR 1.75 MG/DL (0.70-1.30); GLOMERULAR FILTRATION RATE 41.5 (>49); GLUCOSE, FASTING 231 MG/DL (74-106); POTASSIUM SERUM 4.1 MMOL/L (3.5-5.1); SODIUM LEVEL 136 MMOL/L (136-145); TOTAL PROTEIN 6.5 G/DL (5.7-8.2)
== END ==
LOC: SKLAB5 10:39
PROVIDERS: ATTEND Internal Medicine
DX: N18.6 End stage renal disease (principal)

== ENCOUNTER → 2023-11-07 | Outpatient (REF) | payer MEDICARE, MEDICAID ==
[2023-11-07 14:09] LABS: BASO # 0.1 10^3/uL (0.0-0.2); BASO % 1.8 % (0.0-1.0); EOS # 0.2 10^3/uL (0.0-0.5); EOS % 5.8 % (0.0-3.0); HEMOGLOBIN 10.9 g/dl (13.5-17.5); LYMPH # 1.7 10^3/uL (1.5-5.0); MEAN CORPUSCULAR HEMOGLOBIN 29.5 pg (27.0-33.0); MEAN CORPUSCULAR HGB CONC 32.1 g/dl (32.0-36.5); MEAN CORPUSCULAR VOLUME 91.9 fl (80.0-96.0); MONO # 0.6 10^3/uL (0.0-0.8); MONO % 16.2 % (2.0-8.0); NEUTROPHILS # 1.2 10^3/uL (1.5-8.5); NEUTROPHILS % 32.2 % (36.0-66.0); PLATELET COUNT, AUTOMATED 265 10^3/uL (150-450); WHITE BLOOD COUNT 3.8 10^3/uL (4.0-10.0)
[2023-11-07 14:24] LABS: C REACTIVE PROTEIN QUANTITATIV < 0.40 MG/DL (<1.0)
[2023-11-07 14:26] LABS: ALBUMIN 3.1 G/DL (3.2-5.2); ALKALINE PHOSPHATASE 146 U/L (46-116); ALT/SGPT < 9 U/L (7.0-40); AST/SGOT 14 U/L (<34); BILIRUBIN,TOTAL 0.2 MG/DL (0.3-1.2); BLOOD UREA NITROGEN 23 MG/DL (9-23); CALCIUM LEVEL 9.2 MG/DL (8.3-10.6); CARBON DIOXIDE LEVEL 31 MMOL/L (20-31); CHLORIDE LEVEL 103 MMOL/L (98-107); CREATININE FOR GFR 3.27 MG/DL (0.70-1.30); GLOMERULAR FILTRATION RATE 20.2 (>49); GLUCOSE, FASTING 44 MG/DL (74-106); POTASSIUM SERUM 4.6 MMOL/L (3.5-5.1); SODIUM LEVEL 138 MMOL/L (136-145); TOTAL PROTEIN 6.7 G/DL (5.7-8.2)
== END ==
LOC: SKLAB5 07:00
PROVIDERS: ATTEND Internal Medicine
DX: T82.7XXD Infection and inflammatory reaction due to other cardiac and vascular devices, implants and grafts, subsequent encounter (principal)

== ENCOUNTER → 2023-11-14 | Outpatient (REF) | payer MEDICARE, MEDICAID ==
[2023-11-14 14:00] LABS: BASO # 0.1 10^3/uL (0.0-0.2); BASO % 1.6 % (0.0-1.0); EOS # 0.3 10^3/uL (0.0-0.5); EOS % 8.9 % (0.0-3.0); HEMATOCRIT 33.5 % (42.0-52.0); HEMOGLOBIN 10.9 g/dl (13.5-17.5); LYMPH # 1.6 10^3/uL (1.5-5.0); LYMPH % 40.7 % (24.0-44.0); MEAN CORPUSCULAR HEMOGLOBIN 29.4 pg (27.0-33.0); MEAN CORPUSCULAR HGB CONC 32.5 g/dl (32.0-36.5); MEAN CORPUSCULAR VOLUME 90.3 fl (80.0-96.0); MONO # 0.5 10^3/uL (0.0-0.8); MONO % 12.8 % (2.0-8.0); NEUTROPHILS # 1.4 10^3/uL (1.5-8.5); NEUTROPHILS % 35.7 % (36.0-66.0); PLATELET COUNT, AUTOMATED 198 10^3/uL (150-450); RED BLOOD COUNT 3.71 10^6/uL (4.30-6.10); WHITE BLOOD COUNT 3.8 10^3/uL (4.0-10.0)
[2023-11-14 14:24] LABS: C REACTIVE PROTEIN QUANTITATIV < 0.40 MG/DL (<1.0)
[2023-11-14 14:26] LABS: ALKALINE PHOSPHATASE 138 U/L (46-116); ALT/SGPT < 9 U/L (7.0-40); AST/SGOT 12 U/L (<34); BILIRUBIN,TOTAL 0.3 MG/DL (0.3-1.2); BLOOD UREA NITROGEN 24 MG/DL (9-23); CARBON DIOXIDE LEVEL 34 MMOL/L (20-31); CHLORIDE LEVEL 99 MMOL/L (98-107); CREATININE FOR GFR 3.44 MG/DL (0.70-1.30); GLUCOSE, FASTING 114 MG/DL (74-106); POTASSIUM SERUM 4.2 MMOL/L (3.5-5.1); SODIUM LEVEL 137 MMOL/L (136-145); TOTAL PROTEIN 6.4 G/DL (5.7-8.2)
== END ==
LOC: SKLAB5 07:00
PROVIDERS: ATTEND Internal Medicine
DX: T82.7XXD Infection and inflammatory reaction due to other cardiac and vascular devices, implants and grafts, subsequent encounter (principal)

== ENCOUNTER → 2023-12-05 | Outpatient (REF) | payer MEDICARE, MEDICAID ==
[2023-12-05 12:14] LABS: HEMATOCRIT 31.6 % (42.0-52.0); HEMOGLOBIN 10.3 g/dl (13.5-17.5); MEAN CORPUSCULAR HGB CONC 32.6 g/dl (32.0-36.5); PLATELET COUNT, AUTOMATED 219 10^3/uL (150-450); RED BLOOD COUNT 3.55 10^6/uL (4.30-6.10); WHITE BLOOD COUNT 4.2 10^3/uL (4.0-10.0)
[2023-12-05 12:26] LABS: INR 1.02; PROTHROMBIN TIME 13.1 SECONDS (12.5-14.5)
[2023-12-05 12:40] LABS: ALBUMIN 3.3 G/DL (3.2-5.2); BILIRUBIN,TOTAL 0.4 MG/DL (0.3-1.2); CALCIUM LEVEL 9.5 MG/DL (8.3-10.6); CREATININE FOR GFR 4.32 MG/DL (0.70-1.30); GLOMERULAR FILTRATION RATE 14.6 (>49); POTASSIUM SERUM 4.9 MMOL/L (3.5-5.1); TOTAL PROTEIN 6.5 G/DL (5.7-8.2)
== END ==
LOC: SKLAB4 08:55
PROVIDERS: ATTEND Internal Medicine
DX: I25.10 Atherosclerotic heart disease of native coronary artery without angina pectoris (principal); N18.6 End stage renal disease; Z79.01 Long term (current) use of anticoagulants; R91.8 Other nonspecific abnormal finding of lung field

== ENCOUNTER → 2023-12-09 | Outpatient (REF) | payer MEDICARE, MEDICAID ==
[2023-12-09 08:23] LABS: HEMATOCRIT 37.6 % (42.0-52.0); HEMOGLOBIN 12.4 g/dl (13.5-17.5); MEAN CORPUSCULAR HEMOGLOBIN 29.6 pg (27.0-33.0); MEAN CORPUSCULAR VOLUME 89.7 fl (80.0-96.0); PLATELET COUNT, AUTOMATED 234 10^3/uL (150-450); RED BLOOD COUNT 4.19 10^6/uL (4.30-6.10); WHITE BLOOD COUNT 8.3 10^3/uL (4.0-10.0)
[2023-12-09 09:05] LABS: CALCIUM LEVEL 8.9 MG/DL (8.3-10.6); CREATININE FOR GFR 5.83 MG/DL (0.70-1.30); GLOMERULAR FILTRATION RATE 10.3 (>49); POTASSIUM SERUM 6.6 MMOL/L (3.5-5.1)
== END ==
LOC: SKLAB5 07:06
PROVIDERS: ATTEND Internal Medicine
DX: R11.2 Nausea with vomiting, unspecified (principal)

== ENCOUNTER → 2023-12-10 | Outpatient (REF) | payer MEDICARE, MEDICAID ==
[2023-12-10 11:39] LABS: CALCIUM LEVEL 8.5 MG/DL (8.3-10.6); CREATININE FOR GFR 6.93 MG/DL (0.70-1.30); GLOMERULAR FILTRATION RATE 8.5 (>49); POTASSIUM SERUM 4.5 MMOL/L (3.5-5.1)
== END ==
LOC: SKLAB5 09:44
PROVIDERS: ATTEND Internal Medicine
DX: E87.5 Hyperkalemia (principal)

== ENCOUNTER → 2023-12-18 | Outpatient (REF) | payer MEDICARE, MEDICAID | LOC: SKLAB5 09:00 | PROVIDERS: ATTEND Internal Medicine | DX: E11.65 Type 2 diabetes mellitus with hyperglycemia (principal) ==

== ENCOUNTER → 2023-12-19 | Outpatient (REF) | payer MEDICARE, MEDICAID | LOC: SKLAB5 09:00 | PROVIDERS: ATTEND Nurse Practitioner Family | DX: E11.9 Type 2 diabetes mellitus without complications (principal) ==

== ENCOUNTER → 2023-12-19 | Outpatient (CLI) | payer MEDICARE, MEDICAID | LOC: M RAD 11:24 | PROVIDERS: ATTEND Internal Medicine | DX: I10 Essential (primary) hypertension (principal) ==

== ENCOUNTER → 2023-12-19 | Outpatient (REF) | payer MEDICAID, MEDICARE | LOC: SKLAB5 08:51 | PROVIDERS: ATTEND Internal Medicine | DX: Z53.8 Procedure and treatment not carried out for other reasons (principal) ==

== ENCOUNTER 2024-01-23 11:07 | Inpatient (IN) | payer MEDICARE, MEDICAID ==
[~2024-01-23] VITALS: Ht 175.3 cm; Wt 70.0 kg
[2024-01-23 12:01] LABS: HEMATOCRIT 40.5 % (42.0-52.0); HEMOGLOBIN 13.4 g/dl (13.5-17.5); MEAN CORPUSCULAR HGB CONC 33.1 g/dl (32.0-36.5); MEAN CORPUSCULAR VOLUME 90.6 fl (80.0-96.0); PLATELET COUNT, AUTOMATED 263 10^3/uL (150-450); RED BLOOD COUNT 4.47 10^6/uL (4.30-6.10); WHITE BLOOD COUNT 10.8 10^3/uL (4.0-10.0)
[2024-01-23] MEDS: NS 500 ML IV ONE ×2 (12:01→14:24)
[2024-01-23] MEDS ORDERED: GLUC1KIT IM (12:10)
[2024-01-23] MEDS ORDERED: MIRA3350 PO (12:10)
[2024-01-23] MEDS ORDERED: COMB0.2S OS (12:10)
[2024-01-23] MEDS ORDERED: HOME MED LIST COMPLETE! XX SCH (12:10)
[2024-01-23] MEDS ORDERED: ARTIDRO4 OU (12:10)
[2024-01-23] MEDS ORDERED: INSULANT SC (12:10)
[2024-01-23] MEDS ORDERED: ONDA-83 PO (12:10)
[2024-01-23] MEDS ORDERED: MELA5CAP2 PO (12:10)
[2024-01-23] MEDS ORDERED: METO1TAB32 PO (12:10)
[2024-01-23] MEDS ORDERED: NORV5TAB PO (12:10)
[2024-01-23] MEDS ORDERED: ACET1TAB55 PO (12:10)
[2024-01-23] MEDS ORDERED: COLA100C5 PO (12:10)
[2024-01-23 12:31] LABS: INR 1.17; PARTIAL THROMBOPLASTIN TIME 32.1 SECONDS (24.8-34.2); PROTHROMBIN TIME 14.5 SECONDS (12.5-14.5)
[2024-01-23 12:33] LABS: C REACTIVE PROTEIN QUANTITATIV 12.1 MG/DL (<1.0)
[2024-01-23 12:35] LABS: ALBUMIN 3.3 G/DL (3.2-5.2); BILIRUBIN,TOTAL 0.4 MG/DL (0.3-1.2); CALCIUM LEVEL 9.4 MG/DL (8.3-10.6); CREATININE FOR GFR 4.55 MG/DL (0.70-1.30); GLOMERULAR FILTRATION RATE 13.8 (>49); MAGNESIUM LEVEL 2.2 MG/DL (1.8-2.4); TOTAL PROTEIN 7.6 G/DL (5.7-8.2)
[2024-01-23 12:38] LABS: FERRITIN 120.4 NG/ML (10.5-307.3)
[2024-01-23 12:43] LABS: PROCALCITONIN 4.62 ng/ml
[2024-01-23 12:44] LABS: LYMPHOCYTES 8 % (16-44); METAMYELOCYTES 2 % (0-0); MONOCYTES 6 % (0-5); NEUTROPHILS 33 % (28-66)
[2024-01-23 12:45] LABS: PLATELET ESTIMATE NORMAL (NORMAL)
[2024-01-23] MEDS: NS IV STA (13:59)
[2024-01-23] MEDS: cefTRIAXone SOD 2 GM in D5W MINI-BAG PLUS 50 ML IV ONE (14:22)
[2024-01-23] MEDS ORDERED: GLUCAGON INJ 1MG VIAL IM PRN (15:15)
[2024-01-23] MEDS ORDERED: ONDANSETRON 4MG TAB PO PRN (15:15)
[2024-01-23] MEDS ORDERED: GLUCOSE 4 GM CHEW PO PRN (16:20)
[2024-01-23] MEDS ORDERED: GLUCAGON INJ 1MG VIAL SC PRN (16:20)
[2024-01-23] MEDS: INSULIN LISPRO (NovoLOG) PER UNIT SC SCH ×2 (17:58→21:00)
[2024-01-23 18:36] VITALS: BP 133/63; TEMP 97.3; O2SAT 99
[2024-01-23] MEDS ORDERED: INSULIN LISPRO (NovoLOG) PER UNIT SC SCH (21:00)
[2024-01-23] MEDS ORDERED: GABAPENTIN 100 MG CAP PO SCH (21:00)
[2024-01-23] MEDS: DOXYCYCLINE HYCLATE 100MG TABLET PO SCH (21:14)
[2024-01-23] MEDS: ATORVASTATIN 10 MG TAB PO SCH (21:15)
[2024-01-23] MEDS: GABAPENTIN 300 MG CAP PO SCH (21:15)
[2024-01-23] MEDS: GABAPENTIN 100 MG CAP PO SCH (21:16)
[2024-01-23] MEDS: PERCOCET 5MG/325MG TAB PO SCH (21:16)
[2024-01-23] MEDS: LEVEMIR (INSULIN DETEMIR) 1 UNITS/0.01ML SC SCH (21:20)
[2024-01-23 23:39] VITALS: BP 119/56; TEMP 97.6; O2SAT 95
[2024-01-24 03:56] VITALS: BP 108/56; TEMP 97.9; O2SAT 94
[2024-01-24 04:24] LABS: HEMATOCRIT 31.6 % (42.0-52.0); MEAN CORPUSCULAR HEMOGLOBIN 29.6 pg (27.0-33.0); MEAN CORPUSCULAR HGB CONC 32.3 g/dl (32.0-36.5); MEAN CORPUSCULAR VOLUME 91.6 fl (80.0-96.0); PLATELET COUNT, AUTOMATED 218 10^3/uL (150-450); RED BLOOD COUNT 3.45 10^6/uL (4.30-6.10)
[2024-01-24 04:33] LABS: HEMOGLOBIN 10.2 g/dl (13.5-17.5)
[2024-01-24 04:48] LABS: ALBUMIN 2.5 G/DL (3.2-5.2); ALKALINE PHOSPHATASE 99 U/L (46-116); ALT/SGPT 10 U/L (7.0-40); AST/SGOT 14 U/L (<34); BILIRUBIN,TOTAL < 0.2 MG/DL (0.3-1.2); BLOOD UREA NITROGEN 40 MG/DL (9-23); CALCIUM LEVEL 8.7 MG/DL (8.3-10.6); CARBON DIOXIDE LEVEL 26 MMOL/L (20-31); CHLORIDE LEVEL 108 MMOL/L (98-107); CREATININE FOR GFR 4.36 MG/DL (0.70-1.30); GLOMERULAR FILTRATION RATE 14.5 (>49); GLUCOSE, FASTING 57 MG/DL (74-106); POTASSIUM SERUM 4.4 MMOL/L (3.5-5.1); SODIUM LEVEL 139 MMOL/L (136-145); TOTAL PROTEIN 5.7 G/DL (5.7-8.2)
[2024-01-24] MEDS ORDERED: HEPARIN 1,000UNITS/ML 10ML VIAL (FOR RADIOLOGY & DIALYSIS ONLY) IV PRN (06:10)
[2024-01-24] MEDS ORDERED: LIDOCAINE 1% SDV 5ML VIAL SC PRN (06:10)
[2024-01-24] MEDS ORDERED: SODIUM CHLORIDE 0.9% 1000ML IV PRN (06:10)
[2024-01-24] MEDS: DEXTROSE 50% 50ML SYRINGE IV PRN (07:37)
[2024-01-24 08:26] VITALS: BP 154/69; TEMP 98; O2SAT 97
[2024-01-24] MEDS ORDERED: MIRALAX *UNIT DOSE* 17GM PACKET PO SCH (09:00)
[2024-01-24] MEDS: CitaloPRAM (CeleXA) 20 MG TAB PO SCH (09:13)
[2024-01-24] MEDS: MIRALAX *UNIT DOSE* 17GM PACKET PO SCH (09:13)
[2024-01-24] MEDS: ASPIRIN 81MG CHEW TABLET PO SCH (09:13)
[2024-01-24] MEDS: DOCUSATE SODIUM 100MG CAPSULE PO SCH (09:14)
[2024-01-24 12:00] VITALS: BP 132/60; TEMP 97.5; O2SAT 98
[2024-01-24] MEDS: HEPARIN 1,000UNITS/ML 10ML VIAL (FOR RADIOLOGY & DIALYSIS ONLY) XX SCH (12:54)
[2024-01-24 16:00] VITALS: BP 138/61; TEMP 98.7; O2SAT 98
[2024-01-24] MEDS: cefTRIAXone SOD 1 GM in D5W MINI-BAG PLUS 50 ML IV SCH (17:11)
[2024-01-24 19:36] VITALS: BP 143/65; TEMP 97.4; O2SAT 97
[2024-01-24 23:03] VITALS: BP 121/71; TEMP 97.2; O2SAT 98
[2024-01-24] MEDS: RAMELTEON 8 MG TAB (ROZEREM) PO PRN (23:28)
[2024-01-25 03:38] VITALS: BP 135/61; TEMP 98; O2SAT 99
[2024-01-25] MEDS: ACETAMINOPHEN TAB 650MG DOSE (2X325MG) PO PRN (04:07)
[2024-01-25 08:41] LABS: BASO % 0.5 % (0.0-1.0); EOS # 0.1 10^3/uL (0.0-0.5); EOS % 0.8 % (0.0-3.0); HEMATOCRIT 32.2 % (42.0-52.0); HEMOGLOBIN 10.7 g/dl (13.5-17.5); LYMPH % 16.6 % (24.0-44.0); MEAN CORPUSCULAR HEMOGLOBIN 29.9 pg (27.0-33.0); MEAN CORPUSCULAR HGB CONC 33.2 g/dl (32.0-36.5); MEAN CORPUSCULAR VOLUME 89.9 fl (80.0-96.0); MONO # 0.8 10^3/uL (0.0-0.8); MONO % 12.8 % (2.0-8.0); NEUTROPHILS # 4.2 10^3/uL (1.5-8.5); NEUTROPHILS % 69.1 % (36.0-66.0); PLATELET COUNT, AUTOMATED 214 10^3/uL (150-450); RED BLOOD COUNT 3.58 10^6/uL (4.30-6.10); WHITE BLOOD COUNT 6.1 10^3/uL (4.0-10.0)
[2024-01-25] MEDS ORDERED: MIRALAX *UNIT DOSE* 17GM PACKET PO PRN (09:00)
[2024-01-25 09:04] VITALS: BP 152/68; TEMP 97.5; O2SAT 97
[2024-01-25 09:07] LABS: CALCIUM LEVEL 8.9 MG/DL (8.3-10.6); CREATININE FOR GFR 2.98 MG/DL (0.70-1.30); GLOMERULAR FILTRATION RATE 22.4 (>49); MAGNESIUM LEVEL 1.8 MG/DL (1.8-2.4); POTASSIUM SERUM 4.2 MMOL/L (3.5-5.1)
[2024-01-25 12:04] VITALS: BP 168/77; TEMP 97; O2SAT 97
[2024-01-25 14:25] LABS: PHOSPHORUS LEVEL 2.7 MG/DL (2.4-5.1)
[2024-01-25 20:00] VITALS: BP 137/64; TEMP 97.2; O2SAT 98
[2024-01-25] MEDS: HEPARIN SOD (PORCINE) 5000UNITS/ML 1ML VIAL/SYRINGE SC SCH (21:15)
[2024-01-26 03:25] VITALS: BP 113/53; TEMP 98; O2SAT 96
[2024-01-26 08:06] LABS: EOS # 0.2 10^3/uL (0.0-0.5); EOS % 3.9 % (0.0-3.0); HEMATOCRIT 36.4 % (42.0-52.0); HEMOGLOBIN 11.8 g/dl (13.5-17.5); LYMPH # 1.3 10^3/uL (1.5-5.0); LYMPH % 32.3 % (24.0-44.0); MEAN CORPUSCULAR HEMOGLOBIN 29.3 pg (27.0-33.0); MEAN CORPUSCULAR HGB CONC 32.4 g/dl (32.0-36.5); MEAN CORPUSCULAR VOLUME 90.3 fl (80.0-96.0); MONO # 0.6 10^3/uL (0.0-0.8); MONO % 14.7 % (2.0-8.0); NEUTROPHILS # 1.8 10^3/uL (1.5-8.5); NEUTROPHILS % 47.6 % (36.0-66.0); PLATELET COUNT, AUTOMATED 230 10^3/uL (150-450); RED BLOOD COUNT 4.03 10^6/uL (4.30-6.10); WHITE BLOOD COUNT 3.9 10^3/uL (4.0-10.0)
[2024-01-26 08:43] VITALS: BP 153/69; TEMP 98; O2SAT 96
[2024-01-26 08:47] LABS: CALCIUM LEVEL 9.4 MG/DL (8.3-10.6); CREATININE FOR GFR 3.61 MG/DL (0.70-1.30); MAGNESIUM LEVEL 1.8 MG/DL (1.8-2.4); POTASSIUM SERUM 4.6 MMOL/L (3.5-5.1)
[2024-01-26] MEDS ORDERED: CEFD1CAP9 PO (11:52)
[2024-01-26] MEDS ORDERED: DOXY-440 PO (11:52)
[2024-01-26] MEDS ORDERED: PROBCAP14 PO (11:52)
[2024-01-26] MEDS ORDERED: LIDO5DIS41 TD (11:54)
[2024-01-26] MEDS: KETOROLAC 30 MG/ML 1ML VIAL IV ONE (11:55)
== END 2024-01-26 12:57 | DRG 177 ==
LOC: M ED 11:07 → M ED INP 15:08 → M PCU 18:29
PROVIDERS: ADMIT Hospitalist; ATTEND Student in an Organized Health Care Education/Training Program
PROC: 5A1D70Z Performance of Urinary Filtration, Intermittent, Less than 6 Hours Per Day (ICD-10-PCS; principal; 2024-01-24)
DX: U07.1 COVID-19 (principal); N18.6 End stage renal disease; E87.20 Acidosis, unspecified; N25.81 Secondary hyperparathyroidism of renal origin; E11.22 Type 2 diabetes mellitus with diabetic chronic kidney disease; E11.42 Type 2 diabetes mellitus with diabetic polyneuropathy; F32.A Depression, unspecified; E11.65 Type 2 diabetes mellitus with hyperglycemia; I95.9 Hypotension, unspecified; I48.0 Paroxysmal atrial fibrillation; I25.10 Atherosclerotic heart disease of native coronary artery without angina pectoris; D64.9 Anemia, unspecified; R53.1 Weakness; Z79.82 Long term (current) use of aspirin; Z79.4 Long term (current) use of insulin; Z99.2 Dependence on renal dialysis; Z87.891 Personal history of nicotine dependence; Z79.891 Long term (current) use of opiate analgesic; Z79.899 Other long term (current) drug therapy; Z88.0 Allergy status to penicillin; Z88.8 Allergy status to other drugs, medicaments and biological substances

== ENCOUNTER → 2024-03-02 | Outpatient (REF) | payer MEDICARE, MEDICAID ==
[~2024-03-02] MED LIST changes: +ACET1TAB55 PO; +ARTIDRO4 OU; +CEFD1CAP9 PO; +COLA100C5 PO; +COMB0.2S OS; +DOXY-440 PO; +LIDO5DIS41 TD; +MELA5CAP2 PO; +METO1TAB32 PO; +MIRA3350 PO; +NORV5TAB PO; +ONDA-83 PO; +PROBCAP14 PO
[2024-03-02 16:04] LABS: HEMATOCRIT 37.5 % (42.0-52.0); HEMOGLOBIN 12.4 g/dl (13.5-17.5); MEAN CORPUSCULAR HEMOGLOBIN 29.5 pg (27.0-33.0); MEAN CORPUSCULAR HGB CONC 33.1 g/dl (32.0-36.5); MEAN CORPUSCULAR VOLUME 89.1 fl (80.0-96.0); PLATELET COUNT, AUTOMATED 226 10^3/uL (150-450); RED BLOOD COUNT 4.21 10^6/uL (4.30-6.10); WHITE BLOOD COUNT 5.1 10^3/uL (4.0-10.0)
[2024-03-02 16:26] LABS: HEMOGLOBIN A1c 8.9 % (4.0-6.0)
[2024-03-02 16:30] LABS: ALKALINE PHOSPHATASE 136 U/L (46-116); ALT/SGPT < 9 U/L (7.0-40); AST/SGOT 13 U/L (<34); BILIRUBIN,TOTAL 0.2 MG/DL (0.3-1.2); BLOOD UREA NITROGEN 14 MG/DL (9-23); CALCIUM LEVEL 9.2 MG/DL (8.3-10.6); CARBON DIOXIDE LEVEL 27 MMOL/L (20-31); CHLORIDE LEVEL 100 MMOL/L (98-107); CHOLESTEROL LEVEL 157 MG/DL (<200); CHOLESTEROL RISK RATIO 5.45 (<5); CREATININE FOR GFR 2.88 MG/DL (0.70-1.30); GLOMERULAR FILTRATION RATE 23.3 (>49); GLUCOSE, FASTING 131 MG/DL (74-106); HDL CHOLESTEROL 28.8 MG/DL (>40); LDL CHOLESTEROL 88.8 MG/DL (<100); NON-HDL-C 128.2 MG/DL; POTASSIUM SERUM 4.3 MMOL/L (3.5-5.1); SODIUM LEVEL 134 MMOL/L (136-145); TOTAL PROTEIN 6.9 G/DL (5.7-8.2); TRIGLYCERIDES LEVEL 197 MG/DL (<150)
== END ==
LOC: SKLAB5 07:00
PROVIDERS: ATTEND Internal Medicine
DX: E11.9 Type 2 diabetes mellitus without complications (principal); E78.5 Hyperlipidemia, unspecified

== ENCOUNTER → 2024-04-25 | Outpatient (REF) | payer MEDICARE, MEDICAID ==
[~2024-04-25] MED LIST changes: +GABA-1172 PO; -GABA-282 PO
== END ==
LOC: SKLAB5 07:00
PROVIDERS: ATTEND Internal Medicine
DX: R73.09 Other abnormal glucose (principal)

== ENCOUNTER → 2024-04-25 | Outpatient (REF) | payer MEDICARE, MEDICAID | LOC: SKLAB5 07:00 | PROVIDERS: ATTEND Internal Medicine | DX: R73.09 Other abnormal glucose (principal) ==

== ENCOUNTER → 2024-04-26 | Outpatient (CLI) | payer MEDICARE, MEDICAID | LOC: M RAD 10:33 | PROVIDERS: ATTEND Surgery | DX: N18.6 End stage renal disease (principal); Z99.2 Dependence on renal dialysis; R09.89 Other specified symptoms and signs involving the circulatory and respiratory systems ==

== ENCOUNTER → 2024-06-14 | Outpatient (REF) | payer MEDICARE, MEDICAID ==
[2024-06-14 11:54] LABS: HEMATOCRIT 41.7 % (42.0-52.0); HEMOGLOBIN 13.8 g/dl (13.5-17.5); MEAN CORPUSCULAR HEMOGLOBIN 29.9 pg (27.0-33.0); MEAN CORPUSCULAR HGB CONC 33.1 g/dl (32.0-36.5); MEAN CORPUSCULAR VOLUME 90.5 fl (80.0-96.0); PLATELET COUNT, AUTOMATED 167 10^3/uL (150-450); RED BLOOD COUNT 4.61 10^6/uL (4.30-6.10); WHITE BLOOD COUNT 5.5 10^3/uL (4.0-10.0)
[2024-06-14 12:07] LABS: INR 0.94; PARTIAL THROMBOPLASTIN TIME 41.2 SECONDS (24.8-34.2); PROTHROMBIN TIME 12.9 SECONDS (12.5-14.5)
[2024-06-14 12:23] LABS: ALBUMIN 3.8 G/DL (3.2-5.2); BILIRUBIN,TOTAL 0.4 MG/DL (0.3-1.2); CALCIUM LEVEL 9.6 MG/DL (8.3-10.6); CREATININE FOR GFR 3.28 MG/DL (0.70-1.30); POTASSIUM SERUM 4.5 MMOL/L (3.5-5.1); TOTAL PROTEIN 7.4 G/DL (5.7-8.2)
== END ==
LOC: SKLAB5 10:11
PROVIDERS: ATTEND Internal Medicine
DX: Z01.818 Encounter for other preprocedural examination (principal); Z51.81 Encounter for therapeutic drug level monitoring; R94.31 Abnormal electrocardiogram [ECG] [EKG]

== ENCOUNTER → 2024-06-18 | Outpatient (CLI) | payer MEDICARE, MEDICAID | LOC: M RAD 11:15 | PROVIDERS: ATTEND Internal Medicine | DX: Z01.818 Encounter for other preprocedural examination (principal) ==

== ENCOUNTER → 2024-06-18 | Outpatient (REF) | payer MEDICARE, MEDICAID ==
[2024-06-18 10:27] LABS: HEMOGLOBIN 13.1 g/dl (13.5-17.5); MEAN CORPUSCULAR HEMOGLOBIN 29.6 pg (27.0-33.0); MEAN CORPUSCULAR HGB CONC 32.8 g/dl (32.0-36.5); MEAN CORPUSCULAR VOLUME 90.5 fl (80.0-96.0); PLATELET COUNT, AUTOMATED 169 10^3/uL (150-450); RED BLOOD COUNT 4.42 10^6/uL (4.30-6.10); WHITE BLOOD COUNT 5.1 10^3/uL (4.0-10.0)
[2024-06-18 10:54] LABS: HEMOGLOBIN A1c 9.1 % (4.0-6.0)
[2024-06-18 10:59] LABS: ALBUMIN 3.6 G/DL (3.2-5.2); BILIRUBIN,TOTAL 0.3 MG/DL (0.3-1.2); CALCIUM LEVEL 9.6 MG/DL (8.3-10.6); CREATININE FOR GFR 5.19 MG/DL (0.70-1.30); GLOMERULAR FILTRATION RATE 11.8 (>49); POTASSIUM SERUM 4.7 MMOL/L (3.5-5.1); PTH INTACT 409.7 PG/ML (18.5-88.0); TOTAL PROTEIN 7.1 G/DL (5.7-8.2)
== END ==
LOC: SKLAB5 07:00
PROVIDERS: ATTEND Internal Medicine
DX: Z13.29 Encounter for screening for other suspected endocrine disorder (principal); E11.9 Type 2 diabetes mellitus without complications

== ENCOUNTER → 2024-07-05 | Outpatient (REF) | payer MEDICARE, MEDICAID ==
[2024-07-05 14:07] LABS: INR 0.94; PARTIAL THROMBOPLASTIN TIME 25.7 SECONDS (24.8-34.2); PROTHROMBIN TIME 12.9 SECONDS (12.5-14.5)
== END ==
LOC: SKLAB5 07:58
PROVIDERS: ATTEND Internal Medicine
DX: Z01.818 Encounter for other preprocedural examination (principal); Z79.01 Long term (current) use of anticoagulants

== ENCOUNTER → 2024-08-10 | Outpatient (REF) | payer MEDICARE, MEDICAID ==
[~2024-08-10] MED LIST changes: +ATIV1TAB10 PO; +DEXT4TAB9 PO; +OMEP-611 PO; +SEVE800T3 PO; +SODI1POW59 PO; +TUMS0.15 PO
[2024-08-10 17:32] LABS: CALCIUM LEVEL 8.2 MG/DL (8.3-10.6); CREATININE FOR GFR 5.4 MG/DL (0.70-1.30); GLOMERULAR FILTRATION RATE 11.3 (>49); POTASSIUM SERUM 5.6 MMOL/L (3.5-5.1)
== END ==
LOC: SKLAB5 10:08
PROVIDERS: ATTEND Internal Medicine
DX: E87.5 Hyperkalemia (principal)

== ENCOUNTER → 2024-08-10 | Outpatient (REF) | payer MEDICARE, MEDICAID ==
[2024-08-10 08:09] LABS: HEMATOCRIT 42.1 % (42.0-52.0); HEMOGLOBIN 13.4 g/dl (13.5-17.5); MEAN CORPUSCULAR HGB CONC 31.8 g/dl (32.0-36.5); MEAN CORPUSCULAR VOLUME 94.4 fl (80.0-96.0); PLATELET COUNT, AUTOMATED 158 10^3/uL (150-450); RED BLOOD COUNT 4.46 10^6/uL (4.30-6.10); WHITE BLOOD COUNT 9.2 10^3/uL (4.0-10.0)
[2024-08-10 08:47] LABS: CALCIUM LEVEL 8.9 MG/DL (8.3-10.6); CREATININE FOR GFR 4.9 MG/DL (0.70-1.30); GLOMERULAR FILTRATION RATE 12.6 (>49); POTASSIUM SERUM 6.2 MMOL/L (3.5-5.1)
== END ==
LOC: SKLAB5 07:00
PROVIDERS: ATTEND Nurse Practitioner Adult Health
DX: K52.9 Noninfective gastroenteritis and colitis, unspecified (principal)

== ENCOUNTER 2024-08-12 09:12 | Inpatient (IN) | payer MEDICARE, MEDICAID ==
[~2024-08-12 09:12] MED LIST changes: -ATIV1TAB10 PO; -DEXT4TAB9 PO; -OMEP-611 PO; -SEVE800T3 PO; -SODI1POW59 PO; -TUMS0.15 PO
[2024-08-12 10:37] LABS: VENOUS BASE EXCESS 0.7 (-2.0-2.0); VENOUS HCO3 24.6 MMOL/L (23.0-27.0); VENOUS O2 SATURATION 85.9 % (60.0-80.0); VENOUS PARTIAL PRESSURE CO2 37.2 mmHg (38.0-50.0); VENOUS PARTIAL PRESSURE O2 48.7 mmHg (30.0-50.0); VENOUS PH 7.439 UNITS (7.330-7.430); VENOUS STANDARD HCO3 24.9 MMOL/L; VENOUS TOTAL CO2 25.8 MMOL/L (24.0-28.0)
[2024-08-12 10:45] LABS: HEMATOCRIT 36.7 % (42.0-52.0); MEAN CORPUSCULAR HGB CONC 32.7 g/dl (32.0-36.5); MEAN CORPUSCULAR VOLUME 91.8 fl (80.0-96.0); PLATELET COUNT, AUTOMATED 167 10^3/uL (150-450); WHITE BLOOD COUNT 7.8 10^3/uL (4.0-10.0)
[2024-08-12 11:13] LABS: BILIRUBIN,DIRECT 0.2 MG/DL (<0.4); BILIRUBIN,TOTAL 0.5 MG/DL (0.3-1.2); CALCIUM LEVEL 8.7 MG/DL (8.3-10.6); CREATININE FOR GFR 3.62 MG/DL (0.70-1.30); GLOMERULAR FILTRATION RATE 17.9 (>49); MAGNESIUM LEVEL 1.9 MG/DL (1.8-2.4); POTASSIUM SERUM 4.4 MMOL/L (3.5-5.1); THYROID STIMULATING HORMONE 0.958 uIU/ML (0.55-4.78); TOTAL PROTEIN 6.8 G/DL (5.7-8.2)
[2024-08-12 11:35] LABS: EOSINOPHILS 2 % (0-3); LYMPHOCYTES 19 % (16-44); MONOCYTES 12 % (0-5); NEUTROPHILS 39 % (28-66)
[2024-08-12 11:36] LABS: PLATELET ESTIMATE NORMAL (NORMAL); TOXIC VACUOLATION 1+
[2024-08-12] MEDS ORDERED: TUMS0.15 PO (11:36)
[2024-08-12] MEDS ORDERED: OMEP-611 PO (11:36)
[2024-08-12] MEDS ORDERED: ATIV1TAB10 PO (11:36)
[2024-08-12] MEDS ORDERED: DEXT4TAB9 PO (11:36)
[2024-08-12] MEDS ORDERED: SODI1POW59 PO (11:36)
[2024-08-12] MEDS ORDERED: SEVE800T3 PO (11:36)
[2024-08-12] MEDS ORDERED: HOME MED LIST COMPLETE! XX SCH (11:40)
[2024-08-12 14:42] LABS: KETONE, URINE AUTO RFX NEGATIVE (NEGATIVE); LEUKOCYTE ESTERASE UR AUTO RFX NEGATIVE (NEGATIVE); MUCUS, URINE RFX SMALL (NEGATIVE); NITRITE, URINE AUTO RFX NEGATIVE (NEGATIVE); RBC, URINE AUTO RFX 0 /HPF (0-3); SQUAM EPITHELIAL CELL UR AURFX 0 /HPF (0-6); WBC, URINE AUTO RFX 1 /HPF (0-3)
[2024-08-12 15:00] LABS: AMPHETAMINES LEVEL URINE NEGATIVE (NEGATIVE); BARBITURATES URINE NEGATIVE (NEGATIVE); BENZODIAZEPINES URINE NEGATIVE (NEGATIVE); CANNABINOIDS URINE NEGATIVE (NEGATIVE); COCAINE METABOLITE URINE NEGATIVE (NEGATIVE); METHADONE URINE NEGATIVE (NEGATIVE); PHENCYCLIDINE URINE NEGATIVE (NEGATIVE)
[2024-08-12 15:03] LABS: OPIATES URINE POSITIVE (NEGATIVE)
[2024-08-12] MEDS: cefTRIAXone SOD 2 GM in DEXTROSE 5% (D5W) ADV/MINI-BAG 50 ML IV ONE (15:21)
[2024-08-12] MEDS ORDERED: MOM 30ML SUSPENSION UDC PO PRN (17:15)
[2024-08-12] MEDS ORDERED: MAALOX 30 ML SUSP *UDC PO PRN (17:15)
[2024-08-12] MEDS ORDERED: INSULIN LISPRO (NovoLOG) PER UNIT SC SCH (17:30)
[2024-08-12] MEDS: (RENVELA) SEVELAMER **CARBONate** 800 MG TAB PO SCH (17:30)
[2024-08-12] MEDS ORDERED: SOD POLYSTYRENE SULFONATE SUSP 15GM 60ML UD PO PRN (18:05)
[2024-08-12] MEDS ORDERED: INSULIN LISPRO (NovoLOG) PER UNIT SC PRN (18:05)
[2024-08-12] MEDS ORDERED: GLUCOSE 4 GM CHEW PO PRN (18:10)
[2024-08-12] MEDS ORDERED: GLUCAGON INJ 1MG VIAL SC PRN (18:10)
[2024-08-12] MEDS ORDERED: DEXTROSE 50% 50ML SYRINGE IV PRN (18:10)
[2024-08-12] MEDS: INSULIN LISPRO (NovoLOG) PER UNIT SC SCH (21:00)
[2024-08-12] MEDS: ATORVASTATIN 10 MG TAB PO SCH (21:00)
[2024-08-12] MEDS: SENOKOT S TAB PO SCH (21:00)
[2024-08-12 21:20] VITALS: BP 127/55; TEMP 99; O2SAT 93
[2024-08-12 22:21] VITALS: TEMP 100.5
[2024-08-12] MEDS: ACETAMINOPHEN 650MG SUPP PR PRN (23:05)
[2024-08-13 00:13] VITALS: TEMP 98.6
[2024-08-13 04:11] VITALS: BP 155/68; TEMP 100.7; O2SAT 97
[2024-08-13 05:26] VITALS: TEMP 98.5
[2024-08-13 07:06] LABS: BASO % 0.1 % (0.0-1.0); EOS % 0.2 % (0.0-3.0); HEMOGLOBIN 11.2 g/dl (13.5-17.5); MEAN CORPUSCULAR HEMOGLOBIN 30.4 pg (27.0-33.0); MEAN CORPUSCULAR HGB CONC 33.9 g/dl (32.0-36.5); MEAN CORPUSCULAR VOLUME 89.4 fl (80.0-96.0); MONO # 1.6 10^3/uL (0.0-0.8); MONO % 14.8 % (2.0-8.0); NEUTROPHILS % 75.6 % (36.0-66.0); PLATELET COUNT, AUTOMATED 172 10^3/uL (150-450); RED BLOOD COUNT 3.69 10^6/uL (4.30-6.10); WHITE BLOOD COUNT 10.6 10^3/uL (4.0-10.0)
[2024-08-13 07:40] LABS: CALCIUM LEVEL 8.9 MG/DL (8.3-10.6); CREATININE FOR GFR 4.59 MG/DL (0.70-1.30); GLOMERULAR FILTRATION RATE 13.6 (>49); MAGNESIUM LEVEL 1.8 MG/DL (1.8-2.4); POTASSIUM SERUM 3.5 MMOL/L (3.5-5.1)
[2024-08-13] MEDS: BISACODYL 10MG SUPP PR SCH (08:05)
[2024-08-13] MEDS: CitaloPRAM (CeleXA) 20 MG TAB PO SCH (08:05)
[2024-08-13] MEDS: ACETAMINOPHEN 325 MG TAB PO PRN (08:06)
[2024-08-13] MEDS: LanTUS (INSULIN GLARGINE INJ) 1 UNITS/0.01 ML SC SCH (08:07)
[2024-08-13] MEDS: METOPROLOL TART 12.5 MG PER 1/2 TAB PO SCH (08:07)
[2024-08-13] MEDS: amLODIPine 5 MG TAB PO SCH (08:07)
[2024-08-13 08:25] VITALS: TEMP 100.1
[2024-08-13] MEDS ORDERED: VANCOMYCIN HCL 1,000 MG, VIAL MATE ADAPTER 1 EACH in NS 250 ML IV SCH (08:50)
[2024-08-13] MEDS: VANCOMYCIN HCL 1,500 MG, VIAL MATE ADAPTER 1 EACH in NS 500 ML IV ONE (10:27)
[2024-08-13 12:00] VITALS: BP 126/54; TEMP 98.6; O2SAT 93
[2024-08-13] MEDS: cefTRIAXone SOD 2 GM in DEXTROSE 5% (D5W) ADV/MINI-BAG 50 ML IV SCH (15:20)
[2024-08-13] MEDS ORDERED: DEXTROSE 50% 50ML SYRINGE IV PRN (17:20)
[2024-08-13] MEDS ORDERED: GLUCOSE 4 GM CHEW PO PRN (17:20)
[2024-08-13] MEDS ORDERED: GLUCAGON INJ 1MG VIAL SC PRN (17:20)
[2024-08-13] MEDS ORDERED: INSULIN LISPRO (NovoLOG) PER UNIT SC SCH ×2 (17:30→21:00)
[2024-08-13] MEDS: INSULIN LISPRO (NovoLOG) PER UNIT SC SCH (18:22)
[2024-08-13 21:30] VITALS: BP 128/60; TEMP 98.2; O2SAT 92
[2024-08-13] MEDS: PERCOCET 5MG/325MG TAB PO PRN (23:51)
[2024-08-14 05:11] VITALS: BP 105/48; TEMP 97; O2SAT 92
[2024-08-14] MEDS ORDERED: LIDOCAINE 1% SDV 5ML VIAL SC PRN (06:00)
[2024-08-14] MEDS ORDERED: HEPARIN 1,000UNITS/ML 10ML VIAL (FOR RADIOLOGY & DIALYSIS ONLY) IV PRN (06:00)
[2024-08-14] MEDS ORDERED: SODIUM CHLORIDE 0.9% 1000 ML IV PRN (06:00)
[2024-08-14 06:03] LABS: BASO % 0.3 % (0.0-1.0); EOS # 0.2 10^3/uL (0.0-0.5); EOS % 1.6 % (0.0-3.0); HEMATOCRIT 32.5 % (42.0-52.0); HEMOGLOBIN 10.6 g/dl (13.5-17.5); LYMPH # 1.6 10^3/uL (1.5-5.0); LYMPH % 13.6 % (24.0-44.0); MEAN CORPUSCULAR HEMOGLOBIN 30.2 pg (27.0-33.0); MEAN CORPUSCULAR HGB CONC 32.6 g/dl (32.0-36.5); MEAN CORPUSCULAR VOLUME 92.6 fl (80.0-96.0); MONO # 1.1 10^3/uL (0.0-0.8); MONO % 9.6 % (2.0-8.0); NEUTROPHILS # 8.6 10^3/uL (1.5-8.5); NEUTROPHILS % 74.5 % (36.0-66.0); PLATELET COUNT, AUTOMATED 204 10^3/uL (150-450); RED BLOOD COUNT 3.51 10^6/uL (4.30-6.10); WHITE BLOOD COUNT 11.5 10^3/uL (4.0-10.0)
[2024-08-14 06:24] LABS: CALCIUM LEVEL 8.5 MG/DL (8.3-10.6); CREATININE FOR GFR 5.28 MG/DL (0.70-1.30); GLOMERULAR FILTRATION RATE 11.6 (>49); POTASSIUM SERUM 3.4 MMOL/L (3.5-5.1)
[2024-08-14] MEDS: LORazepam 0.5 MG TAB PO SCH (07:18)
[2024-08-14] MEDS: POTASSIUM CHLORIDE 10MEQ SR TABLET PO ONE (07:18)
[2024-08-14] MEDS: VANCOMYCIN HCL 500 MG in DEXTROSE 5% (D5W) MINI-BAG PLU 100 ML IV ONE (08:21)
[2024-08-14] MEDS: HEPARIN SOD (PORCINE) 5000UNITS/ML 1ML VIAL/SYRINGE SC SCH (09:38)
[2024-08-14 11:00] VITALS: BP 106/42; TEMP 97.2; O2SAT 95
[2024-08-14] MEDS: HEPARIN 1,000UNITS/ML 10ML VIAL (FOR RADIOLOGY & DIALYSIS ONLY) XX SCH (13:58)
[2024-08-14] MEDS: VANCOMYCIN HCL 1,000 MG, VIAL MATE ADAPTER 1 EACH in NS 250 ML IV SCH (17:07)
[2024-08-14 17:50] VITALS: BP 110/55; TEMP 97.9; O2SAT 93
[2024-08-14 20:20] VITALS: BP 148/64; TEMP 97.9; O2SAT 93
[2024-08-15 04:14] VITALS: BP 120/56; TEMP 97.3; O2SAT 93
[2024-08-15 07:52] LABS: CALCIUM LEVEL 8.3 MG/DL (8.3-10.6); CREATININE FOR GFR 3.47 MG/DL (0.70-1.30); GLOMERULAR FILTRATION RATE 18.8 (>49); POTASSIUM SERUM 3.6 MMOL/L (3.5-5.1)
[2024-08-15 09:49] VITALS: BP 114/52; TEMP 97.7; O2SAT 97
[2024-08-15 12:00] VITALS: BP 128/48; TEMP 97.9; O2SAT 96
[2024-08-15] MEDS: ONDANSETRON 4MG 2ML VIAL IV PRN (13:56)
[2024-08-15 19:40] VITALS: BP 137/60; TEMP 97.7; O2SAT 97
[2024-08-15] MEDS: RAMELTEON 8 MG TAB (ROZEREM) PO PRN (20:49)
[2024-08-15 20:59] VITALS: TEMP 98.1
[2024-08-16 04:00] VITALS: BP 121/51; TEMP 96.9; O2SAT 95
[2024-08-16 06:00] VITALS: TEMP 98.2
[2024-08-16 06:41] LABS: BASO % 0.4 % (0.0-1.0); EOS # 0.2 10^3/uL (0.0-0.5); EOS % 2.4 % (0.0-3.0); HEMATOCRIT 32.5 % (42.0-52.0); HEMOGLOBIN 10.8 g/dl (13.5-17.5); LYMPH # 1.9 10^3/uL (1.5-5.0); LYMPH % 28.2 % (24.0-44.0); MEAN CORPUSCULAR HGB CONC 33.2 g/dl (32.0-36.5); MEAN CORPUSCULAR VOLUME 90.3 fl (80.0-96.0); MONO # 1.1 10^3/uL (0.0-0.8); MONO % 16.4 % (2.0-8.0); NEUTROPHILS # 3.5 10^3/uL (1.5-8.5); NEUTROPHILS % 51.4 % (36.0-66.0); PLATELET COUNT, AUTOMATED 243 10^3/uL (150-450); WHITE BLOOD COUNT 6.8 10^3/uL (4.0-10.0)
[2024-08-16 07:16] LABS: CALCIUM LEVEL 8.4 MG/DL (8.3-10.6); CREATININE FOR GFR 4.35 MG/DL (0.70-1.30); GLOMERULAR FILTRATION RATE 14.5 (>49); MAGNESIUM LEVEL 1.8 MG/DL (1.8-2.4); POTASSIUM SERUM 3.5 MMOL/L (3.5-5.1)
[2024-08-16] MEDS: methocarbamoL 500 MG TAB PO PRN (10:04)
[2024-08-16 12:07] VITALS: BP 112/57; TEMP 97.7; O2SAT 96
[2024-08-16 17:19] LABS: C REACTIVE PROTEIN QUANTITATIV 11.06 MG/DL (<1.0)
[2024-08-16 20:50] VITALS: BP 142/64; TEMP 97.8; O2SAT 95
[2024-08-17 04:00] VITALS: BP 141/63; TEMP 97.4; O2SAT 98
[2024-08-17 05:24] LABS: BASO % 0.6 % (0.0-1.0); EOS # 0.1 10^3/uL (0.0-0.5); HEMOGLOBIN 10.9 g/dl (13.5-17.5); LYMPH # 1.6 10^3/uL (1.5-5.0); LYMPH % 24.4 % (24.0-44.0); MEAN CORPUSCULAR HEMOGLOBIN 30.1 pg (27.0-33.0); MEAN CORPUSCULAR VOLUME 91.2 fl (80.0-96.0); MONO % 15.8 % (2.0-8.0); NEUTROPHILS # 3.6 10^3/uL (1.5-8.5); NEUTROPHILS % 55.1 % (36.0-66.0); PLATELET COUNT, AUTOMATED 247 10^3/uL (150-450); RED BLOOD COUNT 3.62 10^6/uL (4.30-6.10); WHITE BLOOD COUNT 6.6 10^3/uL (4.0-10.0)
[2024-08-17 05:49] LABS: VANCOMYCIN RANDOM 17.9 UG/ML
[2024-08-17 05:50] LABS: CREATININE FOR GFR 4.7 MG/DL (0.70-1.30); GLOMERULAR FILTRATION RATE 13.2 (>49); POTASSIUM SERUM 3.7 MMOL/L (3.5-5.1)
[2024-08-17] MEDS ORDERED: HEPARIN 1,000UNITS/ML 10ML VIAL (FOR RADIOLOGY & DIALYSIS ONLY) IV PRN (06:00)
[2024-08-17] MEDS ORDERED: SODIUM CHLORIDE 0.9% 1000 ML IV PRN (06:00)
[2024-08-17] MEDS ORDERED: LIDOCAINE 1% SDV 5ML VIAL SC PRN (06:00)
[2024-08-17 06:06] VITALS: BP 136/56
[2024-08-17] MEDS: **NOTE PATIENT COMMENT** MISC XX SCH (07:00)
[2024-08-17] MEDS: HEPARIN 1,000UNITS/ML 10ML VIAL (FOR RADIOLOGY & DIALYSIS ONLY) XX SCH (09:23)
== END 2024-08-17 13:40 | DRG 444 ==
LOC: M ED 09:12 → EDBD 09:12 → M ED INP 17:12 → M MSPAV 21:00
PROVIDERS: ADMIT Student in an Organized Health Care Education/Training Program; ATTEND General Practice
PROC: 5A1D70Z Performance of Urinary Filtration, Intermittent, Less than 6 Hours Per Day (ICD-10-PCS; principal; 2024-08-17)
DX: K81.9 Cholecystitis, unspecified (principal); N18.6 End stage renal disease; G93.41 Metabolic encephalopathy; I12.0 Hypertensive chronic kidney disease with stage 5 chronic kidney disease or end stage renal disease; R65.10 Systemic inflammatory response syndrome (SIRS) of non-infectious origin without acute organ dysfunction; I48.21 Permanent atrial fibrillation; R41.82 Altered mental status, unspecified; E78.5 Hyperlipidemia, unspecified; K52.9 Noninfective gastroenteritis and colitis, unspecified; M19.90 Unspecified osteoarthritis, unspecified site; G89.29 Other chronic pain; M54.50 Low back pain, unspecified; E11.22 Type 2 diabetes mellitus with diabetic chronic kidney disease; E11.42 Type 2 diabetes mellitus with diabetic polyneuropathy; F41.9 Anxiety disorder, unspecified; F32.A Depression, unspecified; D63.1 Anemia in chronic kidney disease; F03.A0 Unspecified dementia, mild, without behavioral disturbance, psychotic disturbance, mood disturbance, and anxiety; B35.1 Tinea unguium; E11.649 Type 2 diabetes mellitus with hypoglycemia without coma; R50.9 Fever, unspecified; E21.1 Secondary hyperparathyroidism, not elsewhere classified; K59.00 Constipation, unspecified; E87.6 Hypokalemia; Z99.2 Dependence on renal dialysis; Z79.4 Long term (current) use of insulin; Z79.82 Long term (current) use of aspirin; Z79.891 Long term (current) use of opiate analgesic; Z79.899 Other long term (current) drug therapy; Z88.0 Allergy status to penicillin; Z88.8 Allergy status to other drugs, medicaments and biological substances; Z87.891 Personal history of nicotine dependence

== ENCOUNTER → 2024-08-20 | Outpatient (REF) | payer MEDICARE, MEDICAID ==
[~2024-08-20] MED LIST changes: +ATIV1TAB10 PO; +DEXT4TAB9 PO; +OMEP-611 PO; +SEVE800T3 PO; +SODI1POW59 PO; +TUMS0.15 PO
[2024-08-20 10:15] LABS: HEMATOCRIT 31.2 % (42.0-52.0); HEMOGLOBIN 10.3 g/dl (13.5-17.5); MEAN CORPUSCULAR HEMOGLOBIN 30.7 pg (27.0-33.0); MEAN CORPUSCULAR VOLUME 92.9 fl (80.0-96.0); PLATELET COUNT, AUTOMATED 305 10^3/uL (150-450); RED BLOOD COUNT 3.36 10^6/uL (4.30-6.10); WHITE BLOOD COUNT 6.9 10^3/uL (4.0-10.0)
[2024-08-20 10:41] LABS: CALCIUM LEVEL 7.8 MG/DL (8.3-10.6); CREATININE FOR GFR 5.33 MG/DL (0.70-1.30); GLOMERULAR FILTRATION RATE 11.4 (>49); POTASSIUM SERUM 4.3 MMOL/L (3.5-5.1)
== END ==
LOC: SKLAB5 07:50
PROVIDERS: ATTEND Internal Medicine
DX: N18.6 End stage renal disease (principal)

== ENCOUNTER 2024-10-07 07:45 | Emergency (ER) | payer MEDICAID, MEDICARE ==
[~2024-10-07] VITALS: Ht 185.4 cm; Wt 71.1 kg
[~2024-10-07 07:45] MED LIST changes: -GLUC1KIT IM; +GLUC1VIA14 IM
[2024-10-07 08:34] LABS: BASO % 0.2 % (0.0-1.0); EOS # 0.2 10^3/uL (0.0-0.5); EOS % 1.7 % (0.0-3.0); HEMATOCRIT 36.6 % (42.0-52.0); HEMOGLOBIN 11.7 g/dl (13.5-17.5); LYMPH # 1.4 10^3/uL (1.5-5.0); LYMPH % 13.8 % (24.0-44.0); MEAN CORPUSCULAR HEMOGLOBIN 29.8 pg (27.0-33.0); MEAN CORPUSCULAR VOLUME 93.4 fl (80.0-96.0); MONO # 1.3 10^3/uL (0.0-0.8); MONO % 13.1 % (2.0-8.0); NEUTROPHILS % 70.9 % (36.0-66.0); PLATELET COUNT, AUTOMATED 162 10^3/uL (150-450); RED BLOOD COUNT 3.92 10^6/uL (4.30-6.10); WHITE BLOOD COUNT 9.9 10^3/uL (4.0-10.0)
[2024-10-07 09:44] LABS: LIPASE 19 U/L (12-53)
[2024-10-07 09:46] LABS: ALBUMIN 3.1 G/DL (3.2-5.2); ALKALINE PHOSPHATASE 96 U/L (40-129); ALT/SGPT 12 U/L (7.0-40); AMYLASE 43 U/L (30-118); AST/SGOT 13 U/L (<34); BILIRUBIN,DIRECT 0.2 MG/DL (<0.4); BILIRUBIN,TOTAL 0.6 MG/DL (0.3-1.2); BLOOD UREA NITROGEN 37 MG/DL (9-23); CALCIUM LEVEL 8.4 MG/DL (8.3-10.6); CARBON DIOXIDE LEVEL 27 MMOL/L (20-31); CHLORIDE LEVEL 98 MMOL/L (98-107); CK-MB VALUE MASS < 1.0 NG/ML (<3.6); CPK CREATINE PHOSPHOKINASE 25 U/L (46-171); CREATININE FOR GFR 3.92 MG/DL (0.70-1.30); GLOMERULAR FILTRATION RATE 15.8 (>49); GLUCOSE, FASTING 304 MG/DL (74-106); POTASSIUM SERUM 4.4 MMOL/L (3.5-5.1); SODIUM LEVEL 137 MMOL/L (136-145); TOTAL PROTEIN 6.6 G/DL (5.7-8.2)
[2024-10-07 09:46] LABS: CK-MB VALUE MASS < 1.0 NG/ML (<3.6)
[2024-10-07 09:56] LABS: CPK CREATINE PHOSPHOKINASE 26 U/L (46-171); MB/CK RELATIVE INDEX 3.84 (< OR =4)
[2024-10-07] MEDS ORDERED: BUSP5TA PO (10:41)
[2024-10-07] MEDS ORDERED: HOME MED LIST COMPLETE! XX SCH (10:45)
[2024-10-07] MEDS: PERCOCET 5MG/325MG TAB PO ONE (11:24)
[2024-10-07 11:53] VITALS: BP 121/58; TEMP 97.9; O2SAT 97
== END 2024-10-07 12:03 | disposition home or self-care (01) ==
LOC: M ED 07:45 → EDBD 07:45 → M ED 12:03
DX: E11.649 Type 2 diabetes mellitus with hypoglycemia without coma (principal); E86.0 Dehydration; R19.7 Diarrhea, unspecified; R11.10 Vomiting, unspecified; I25.10 Atherosclerotic heart disease of native coronary artery without angina pectoris; I10 Essential (primary) hypertension; N18.4 Chronic kidney disease, stage 4 (severe); Z99.2 Dependence on renal dialysis; F41.9 Anxiety disorder, unspecified; F32.A Depression, unspecified; Z79.4 Long term (current) use of insulin; Z79.82 Long term (current) use of aspirin; Z79.899 Other long term (current) drug therapy; Z88.0 Allergy status to penicillin; Z88.1 Allergy status to other antibiotic agents

== ENCOUNTER → 2024-10-13 | Outpatient (REF) | payer MEDICARE ==
[~2024-10-13] MED LIST changes: +BUSP5TA PO
[2024-10-13 09:11] LABS: HEMOGLOBIN A1c 7.3 % (4.0-6.0)
== END ==
LOC: SKLAB5 07:31
PROVIDERS: ATTEND Internal Medicine
DX: E11.9 Type 2 diabetes mellitus without complications (principal)

== ENCOUNTER → 2024-10-14 | Outpatient (REF) | payer MEDICARE ==
[2024-10-14 11:52] LABS: HEMATOCRIT 37.8 % (42.0-52.0); HEMOGLOBIN 12.1 g/dl (13.5-17.5); MEAN CORPUSCULAR HEMOGLOBIN 29.4 pg (27.0-33.0); PLATELET COUNT, AUTOMATED 226 10^3/uL (150-450); RED BLOOD COUNT 4.11 10^6/uL (4.30-6.10); WHITE BLOOD COUNT 5.6 10^3/uL (4.0-10.0)
[2024-10-14 12:34] LABS: ALBUMIN 2.8 G/DL (3.2-5.2); ALKALINE PHOSPHATASE 117 U/L (40-129); ALT/SGPT < 9 U/L (7.0-40); AST/SGOT 9 U/L (<34); BILIRUBIN,TOTAL 0.2 MG/DL (0.3-1.2); BLOOD UREA NITROGEN 23 MG/DL (9-23); CALCIUM LEVEL 8.6 MG/DL (8.3-10.6); CARBON DIOXIDE LEVEL 33 MMOL/L (20-31); CHLORIDE LEVEL 98 MMOL/L (98-107); CHOLESTEROL LEVEL 87 MG/DL (<200); CHOLESTEROL RISK RATIO 2.81 (<5); CREATININE FOR GFR 2.78 MG/DL (0.70-1.30); GLOMERULAR FILTRATION RATE 23.9 (>49); GLUCOSE, FASTING 182 MG/DL (74-106); HDL CHOLESTEROL 30.9 MG/DL (>40); LDL CHOLESTEROL 33.7 MG/DL (<100); NON-HDL-C 56.1 MG/DL; POTASSIUM SERUM 4.2 MMOL/L (3.5-5.1); SODIUM LEVEL 138 MMOL/L (136-145); TOTAL PROTEIN 6.5 G/DL (5.7-8.2); TRIGLYCERIDES LEVEL 112 MG/DL (<150)
[2024-10-14 13:00] LABS: HEMOGLOBIN A1c 7.5 % (4.0-6.0)
== END ==
LOC: SKLAB5 07:00
PROVIDERS: ATTEND Internal Medicine
DX: E78.5 Hyperlipidemia, unspecified (principal); Z79.899 Other long term (current) drug therapy

== ENCOUNTER → 2025-04-20 | Outpatient (REF) | payer MEDICARE ==
[~2025-04-20] MED LIST changes: -ASPI-655 PO; +ASPI-737 PO; +LIDO1ADH93 TD; -LIDO5DIS41 TD
[2025-04-20 08:35] LABS: BASO # 0.1 10^3/uL (0.0-0.2); BASO % 1.9 % (0.0-1.0); EOS # 0.4 10^3/uL (0.0-0.5); EOS % 11.1 % (0.0-3.0); LYMPH # 1.1 10^3/uL (1.5-5.0); LYMPH % 34.9 % (24.0-44.0); MONO # 0.6 10^3/uL (0.0-0.8); MONO % 18.4 % (2.0-8.0); NEUTROPHILS # 1.0 10^3/uL (1.5-8.5); NEUTROPHILS % 33.1 % (36.0-66.0); PLATELET COUNT, AUTOMATED 185 10^3/uL (150-450)
[2025-04-20 09:04] LABS: ALT/SGPT 10.0 U/L (7.0-40); AST/SGOT 13.0 U/L (<34); CALCIUM LEVEL 8.8 MG/DL (8.3-10.6); CARBON DIOXIDE LEVEL 31.0 MMOL/L (20-31); CHLORIDE LEVEL 92.0 MMOL/L (98-107); CHOLESTEROL LEVEL 122.0 MG/DL (<200); CHOLESTEROL RISK RATIO 3.98 (<5); CREATININE FOR GFR 5.18 MG/DL (0.70-1.30); GLOMERULAR FILTRATION RATE 11.3 (>42); LDL CHOLESTEROL 54.8 MG/DL (<100); NON-HDL-C 91.4 MG/DL; POTASSIUM SERUM 5.0 MMOL/L (3.5-5.1); SODIUM LEVEL 130.0 MMOL/L (136-145); TRIGLYCERIDES LEVEL 183.0 MG/DL (<150)
[2025-04-20 09:18] LABS: ESTIMATED AVERAGE GLUCOSE 255.0 MG/DL (60-110)
== END ==
LOC: SKLAB5 07:00
PROVIDERS: ATTEND Internal Medicine
DX: E11.9 Type 2 diabetes mellitus without complications (principal)